=== PATIENT | male | born 1960 | race African-American/Black ===

== ENCOUNTER 2018-09-07 12:14 | Inpatient (IN) | payer SELFPAY ==
[2018-09-07 13:13] LABS: BUN/Creatinine Ratio 25; Blood Urea Nitrogen 10 mg/dL (9-20); Hemolysis Index 6
[2018-09-07 13:22] LABS: Basophils # (Auto) 0.1 K/mm3 (0.0-0.1); Basophils % (Auto) 0.4 % (0.0-1.8); Eosinophils % (Auto) 0.1 % (0.0-4.3); Hematocrit 33.6 % (35.5-45.6); Hemoglobin 10.9 gm/dl (11.8-15.2); Lymphocytes # (Auto) 1.3 K/mm3 (1.2-5.4); Lymphocytes % (Auto) 8.6 % (13.4-35.0); Mean Corpuscular HGB Conc 32 % (32-34); Mean Corpuscular Volume 82 fl (84-94); Monocytes # (Auto) 0.9 K/mm3 (0.0-0.8); Monocytes % (Auto) 5.6 % (0.0-7.3); Platelet Count 618 K/mm3 (140-440); Red Blood Count 4.11 M/mm3 (3.65-5.03); Red Cell Distribution Width 14.7 % (13.2-15.2)
[2018-09-07] MEDS ORDERED: DECADRON IV ONE (13:42)
[2018-09-07] MEDS ORDERED: NACL 0.9% 1000 ML 1,000 ML IV ONE (13:43)
[2018-09-07 13:46] LABS: INR 1.24 (0.87-1.13)
[2018-09-07 13:47] LABS: Partial Thromboplastin Time 46.8 Sec. (24.2-36.6)
--- NOTE | 2018-09-07 13:57 | XRay Report ---
FINAL REPORT EXAM: XR CHEST ROUTINE 2V HISTORY: Shortness of breath TECHNIQUE: Frontal chest x-ray. PRIORS: None currently available. FINDINGS: Cardiac silhouette is within normal limits. Right paratracheal opacity with ill-defined margins causes displaces the mediastinum to the left and narrows trachea. Findings are concerning for mass. Prominent right hilar region suggests enlarged lym ph nodes. Streaky opacities around the right paratracheal opacity may represent lymphangitic spread o r pulmonary vascular congestion. Right apical pleural thickening identified. No pneumothorax. No effu tian. Left lung is clear. There are no suspicious osseous lesions. IMPRESSION: Suspect right paratracheal mass and mediastinal adenopathy. Mass causes left mediastinal shift and na rrowing the trachea. Further evaluation with a CT thorax with contrast is recommended if clinically i ndicated. There may be right perihilar pulmonary vascular congestion and or lymphangitic spread of tumor.
[2018-09-07 14:33] LABS: Creatine Kinase MB 2.6 ng/mL (0.0-4.0)
--- NOTE | 2018-09-07 14:36 | Emergency Department Report ---
HPI - General Chief Complaint: Dyspnea/Respdistress Time Seen by Provider: 09/07/18 12:50 - HPI HPI: Room 2 The patient is a 58-year-old male presents with a chief complaint of shortness of breath. The patient complains of cough productive of white sputum for the past 2 months. Patient states for the past 2 days he has had shortness of breath and noisy respirations. Patient also complains of upper back pain for the past 2 months. Patient denies hemoptysis. The patient states he has had unexplained weight loss over the past 2 months. Location: Lungs Duration: [See above] Quality: Shortness of breath Severity: [See above] Modifying factors: [see above] Context: [see above] Mode of transportation: [not driving] ED Past Medical Hx - Past Medical History Previous Medical History?: No - Surgical History Past Surgical History?: No - Family History Family history: no significant - Social History Smoking Status: Current Every Day Smoker Substance Use Type: None ED Review of Systems ROS: Stated complaint: SOB Other details as noted in HPI Constitutional: denies: fever Eyes: denies: eye pain ENT: denies: throat pain Respiratory: cough, shortness of breath Cardiovascular: denies: chest pain Endocrine: no symptoms reported Gastrointestinal: denies: abdominal pain Genitourinary: denies: dysuria Musculoskeletal: back pain Neurological: denies: headache Physical Exam - Physical Exam Vital Signs: Vital Signs 09/07/18 09/07/18 09/07/18 12:36 13:52 14:23 Temperature 97.5 F L Pulse Rate [ 108 H 107 H Anterior Bilateral Throughout] Respiratory 24 22 Rate [Anterior Bilateral Throughout] Physical Exam: GENERAL: The patient is well-developed well-nourished male lying on stretcher not appearing to be in acute distress. [] HEENT: Normocephalic. Atraumatic. Extraocular motions are intact. Patient has moist mucous membranes. NECK: Supple. Trachea midline CHEST/LUNGS: Diffuse rhonchi, occasional cough. HEART/CARDIOVASCULAR: Regular. There is tachycardia. There is no gallop rub or murmur. ABDOMEN: Abdomen is soft, nontender. Patient has normal bowel sounds. There is no abdominal distention. SKIN: There is no rash. There is no edema. There is no diaphoresis. NEURO: The patient is awake, alert, and oriented. The patient is cooperative. The patient has normal speech MUSCULOSKELETAL: There is no evidence of acute injury. ED Course Vital Signs 09/07/18 09/07/18 09/07/18 12:36 13:52 14:23 Temperature 97.5 F L Pulse Rate [ 108 H 107 H Anterior Bilateral Throughout] Respiratory 24 22 Rate [Anterior Bilateral Throughout] - Consultations Consultation #1: 09/07/18 17:[address] Marquez/pulmonology ED Medical Decision Making - Lab Data Result diagrams: 09/07/18 Unknown 09/07/18 Unknown Laboratory Tests 09/07/18 09/07/18 09/07/18 13:25 Unknown Unknown WBC 15.5 H RBC 4.11 Hgb 10.9 L Hct 33.6 L MCV 82 L MCH 26 L MCHC 32 RDW 14.7 Plt Count 618 H Lymph % (Auto) 8.6 L [place] % (Auto) 5.6 Eos % (Auto) 0.1 Baso % (Auto) 0.4 Lymph # 1.3 [place] # 0.9 H Eos # 0.0 Baso # 0.1 Seg Neutrophils % 85.3 H Seg Neutrophils # 13.2 H PT 16.0 H INR 1.24 H APTT 46.8 H Sodium 134 L Potassium 4.4 Chloride 94.7 L Carbon Dioxide 24 Anion Gap 20 BUN 10 Creatinine 0.4 L Estimated GFR > 60 BUN/Creatinine Ratio 25 Glucose 135 H Calcium 9.0 Total Creatine Kinase CK-MB (CK-2) CK-MB (CK-2) Rel Index Troponin T NT-Pro-B Natriuret Pep Triglycerides Cholesterol LDL Cholesterol Direct HDL Cholesterol Cholesterol/HDL Ratio 09/07/18 Unknown WBC RBC Hgb Hct MCV MCH MCHC RDW Plt Count Lymph % (Auto) [place] % (Auto) Eos % (Auto) Baso % (Auto) Lymph # [place] # Eos # Baso # Seg Neutrophils % Seg Neutrophils # PT INR APTT Sodium Potassium Chloride Carbon Dioxide Anion Gap BUN Creatinine Estimated GFR BUN/Creatinine Ratio Glucose Calcium Total Creatine Kinase 45 L CK-MB (CK-2) 2.6 CK-MB (CK-2) Rel Index 5.7 H Troponin T 0.056 H NT-Pro-B Natriuret Pep 651.9 Triglycerides 101 Cholesterol 133 LDL Cholesterol Direct 92 HDL Cholesterol 27 L Cholesterol/HDL Ratio 4.92 - EKG Data -: EKG Interpreted by Me EKG shows normal: sinus rhythm Rate: tachycardia (105 bpm) - EKG Data When compared to previous EKG there are: previous EKG unavailable Interpretation: nonspecific ST-T wave miryam (T-wave inversions in leads V4, V5, V6) - Radiology Data Radiology results: report reviewed (chest x-ray, CT chest), image reviewed (chest x-ray, CT chest) interpreted by me: Chest x-ray-right upper lobe mass pushing trachea to the left. No pneumothorax [address] [address] XRay Report Signed Patient: EVELIO SWANN MR#: [id number] : 1960 Acct:[id number] Age/Sex: 58 / M ADM Date: 09/07/18 Loc: ED Attending Dr: Ordering Physician: KATTY NUÑEZ MD Date of Service: 09/07/18 Procedure(s): XR chest routine 2V Accession Number(s): [id number] cc: KATTY NUÑEZ MD Fluoro Time In Minutes: FINAL REPORT EXAM: XR CHEST ROUTINE 2V HISTORY: Shortness of breath TECHNIQUE: Frontal chest x-ray. PRIORS: None currently available. FINDINGS: Cardiac silhouette is within normal limits. Right paratracheal opacity with ill- defined margins causes displaces the mediastinum to the left and narrows trachea. Findings are concerning for mass. Prominent right hilar region suggests enlarged lymph nodes. Streaky opacities around the right paratracheal opacity may represent lymphangitic spread or pulmonary vascular congestion. Right apical pleural thickening identified. No pneumothorax. No effusion. Left lung is clear. There are no suspicious osseous lesions. IMPRESSION: Suspect right paratracheal mass and mediastinal adenopathy. Mass causes left mediastinal shift and narrowing the trachea. Further evaluation with a CT thorax with contrast is recommended if clinically indicated. There may be right perihilar pulmonary vascular congestion and or lymphangitic spread of tumor. Transcribed By: TYM Dictated By: MIMI BOOTHE MD Electronically Authenticated By: MIMI BOOTHE MD Signed Date/Time: 09/07/18 1357 DD/ 1400 TD/TT: 09/07/18 [address] [address] Cat Scan Report Signed Patient: EVELIO SWANN MR#: [id number] : 1960 Acct:[id number] Age/Sex: 58 / M ADM Date: 09/07/18 Loc: ED Attending Dr: Ordering Physician: KATTY NUÑEZ MD Date of Service: 09/07/18 Procedure(s): CT angio chest Accession Number(s): [id number] cc: KATTY NUÑEZ MD FINAL REPORT EXAM: CT ANGIO CHEST HISTORY: right upper lobe mass, hypoxia TECHNIQUE: CTA of chest with IV contrast. Coronal and sagittal and MIP reconstructed images provided. PRIORS: None currently available. FINDINGS: Right upper lobe paratracheal mass demonstrates surrounding stranding suggesting lymphangitic spread. Spiculated pulmonary nodule in the right upper lobe on series 2:66 measures 5.3 mm suggesting metastatic disease. Mild emphysema. Interseptal thickening with slight nodularity in both lung bases may represent lymphangitic spread. Trace bilateral pleural effusions. Bibasilar subsegmental atelectasis noted. SVC severely narrow measuring 4.3 mm in diameter and normally measures 12.5 mm in diameter. Mass effect identified. Collateralized flow to the heart noted. Main pulmonary artery is unremarkable. No pulmonary embolus. No aortic aneurysm or dissection. [id number] aortic atherosclerotic disease. Major branch arteries are patent. Mild cardiomegaly. No pericardial effusion. Right paratracheal mass measures 8 x 9 x 7 cm. On series 2:48-51 there appears to be extension and invasion into the distal right trachea and narrowing the airway down to 4 mm which normally measures 11 mm. There is encasement and mass-effect on the left upper lobe arterial arteries but no direct invasion. There may be some mild narrowing of the arteries. Encasement and mild narrowing of the right bronchi identified. Prominent right hilar soft tissues and right mediastinal soft tissues suggests associated adenopathy. Left hilar regions unremarkable. Images of the esophagus are unremarkable. No suspicious osseous lesions on this limited examination of the skeleton. Metastatic disease better evaluated with bone scan. IMPRESSION: Right paratracheal mass with invasion of the distal t rachea. Significant airway narrowing identified. Interseptal thickening around the mass and in both lower lobe suggests lymphangitic spread. Separate nearby spiculated nodule in the right upper lobe suggest metastatic disease. Pathological adenopathy in the mediastinum and right hilar region. Significant narrowing of the SVC with collateralized return to the heart. Cardiomegaly. September 07, 2018 at 1329 PST: I discussed the findings over phone with Dr. Nuñez. Transcribed By: TYM Dictated By: MIMI BOOTHE MD Electronically Authenticated By: MIMI BOOTHE MD Signed Date/Time: 09/07/181633 DD/ 36 TD/TT: 09/07/181636 - Differential Diagnosis lungs CTA, tuberculosis, Critical care attestation.: If time is entered above; I have spent that time in minutes in the direct care of this critically ill patient, excluding procedure time. ED Disposition Clinical Impression: Lung mass, Shortness of breath Disposition: 09 OP ADMIT IP TO THIS HOSP Is pt being admited?: Yes Does the pt Need Aspirin: Yes Condition: Fair Referrals: PRIMARY CARE, [Primary Care Provider] - 3-5 Days Time of Disposition: 17:04 (hospitalist notified (Dr Pratt))
[2018-09-07 14:44] LABS: Chol/HDL Ratio 4.92 %
--- NOTE | 2018-09-07 16:34 | Cat Scan Report ---
FINAL REPORT EXAM: CT ANGIO CHEST HISTORY: right upper lobe mass, hypoxia TECHNIQUE: CTA of chest with IV contrast. Coronal and sagittal and MIP reconstructed images provided . PRIORS: None currently available. FINDINGS: Right upper lobe paratracheal mass demonstrates surrounding stranding suggesting lymphangitic spread. Spiculated pulmonary nodule in the right upper lobe on series 2:66 measures 5.3 mm suggesting metast atic disease. Mild emphysema. Interseptal thickening with slight nodularity in both lung bases may re present lymphangitic spread. Trace bilateral pleural effusions. Bibasilar subsegmental atelectasis no lucy. SVC severely narrow measuring 4.3 mm in diameter and normally measures 12.5 mm in diameter. Mass effe ct identified. Collateralized flow to the heart noted. Main pulmonary artery is unremarkable. No pulmonary embolus. No aortic aneurysm or dissection. [id number] aortic atherosclerotic disease. Major branch arter ies are patent. Mild cardiomegaly. No pericardial effusion. Right paratracheal mass measures 8 x 9 x 7 cm. On series 2:48-51 there appears to be extension and in vasion into the distal right trachea and narrowing the airway down to 4 mm which normally measures 11 mm. There is encasement and mass-effect on the left upper lobe arterial arteries but no direct invas ion. There may be some mild narrowing of the arteries. Encasement and mild narrowing of the right bro nchi identified. Prominent right hilar soft tissues and right mediastinal soft tissues suggests associated adenopathy. Left hilar regions unremarkable. Images of the esophagus are unremarkable. No suspicious osseous lesions on this limited examination of the skeleton. Metastatic disease better evaluated with bone scan. IMPRESSION: Right paratracheal mass with invasion of the distal trachea. Significant airway narrowing identified. Interseptal thickening around the mass and in both lower lobe suggests lymphangitic spread. Separate nearby spiculated nodule in the right upper lobe suggest metastatic disease. Pathological adenopathy in the mediastinum and right hilar region. Significant narrowing of the SVC with collateralized return to the heart. Cardiomegaly. September 07, 2018 at 1329 PST: I discussed the findings over phone with Dr. Boss.
[2018-09-07] MEDS ORDERED: ASPIRIN PO ONE (17:06)
[2018-09-07] MEDS ORDERED: ZOFRAN IV PRN (19:08)
[2018-09-07] MEDS ORDERED: TYLENOL PO PRN (19:08)
[2018-09-07] MEDS ORDERED: SODIUM CHLORIDE FLUSH SYRINGE 10 ML IV PRN (19:08)
--- NOTE | 2018-09-07 19:08 | History and Physical Report ---
History of Present Illness Date of examination: 09/07/18 Date of admission: 09/07/18 Chief complaint: Increaing SOB for 2 days with wheezing History of present illness: 58-year-old [place] male with no sig PMH presents with chief complaint of shortness of breath. The patient complains of cough productive of white sputum for the past 2 months. Patient states for the past 2 days he has had shortness of breath and Wheezing. Patient also complains of upper back pain for the past 2 months. Has been loosing weight for last 2 months.Used [employer] to communicate with son and DadPatient denies hemoptysis. Past Medical History Previous Medical History?: No Surgical History Past Surgical History?: No Family History Family history: no significant Social History Smoking Status: Current Every Day Smoker Substance Use Type: None Review of systems ROS: Stated complaint: SOB Other details as noted in HPI Constitutional: denies: fever Eyes: denies: eye pain ENT: denies: throat pain Respiratory: cough, shortness of breath Cardiovascular: denies: chest pain Endocrine: no symptoms reported Gastrointestinal: denies: abdominal pain Genitourinary: denies: dysuria Musculoskeletal: back pain Neurological: denies: headache Medications and Allergies Allergies Allergy/AdvReac Type Severity Reaction Status Date / Time No Known Allergies Allergy Unverified 09/07/18 12:25 Exam - Constitutional Vitals: Temp Pulse Resp BP Pulse Ox 97.3 F L 104 H 20 142/94 94 09/07/18 16:37 09/07/18 18:46 09/07/18 18:46 09/07/18 18:46 09/07/18 18:46 General appearance: Present: severe distress, well-nourished - EENT Eyes: Present: PERRL ENT: hearing intact, clear oral mucosa - Neck Neck: Present: supple, normal ROM - Respiratory Respiratory effort: normal Respiratory: bilateral: CTA, rhonchi, wheezing - Cardiovascular Heart rate: 78 Rhythm: regular Heart Sounds: Present: S1 & S2. Absent: rub, click - Extremities Extremities: no ischemia, pulses intact, pulses symmetrical, No edema Peripheral Pulses: within normal limits - Abdominal General gastrointestinal: Present: soft, non-tender, non-distended, normal bowel sounds Male genitourinary: Present: normal - Rectal Rectal Exam: deferred - Integumentary Integumentary: Present: clear, warm, dry - Musculoskeletal Musculoskeletal: gait normal, strength equal bilaterally - Psychiatric Psychiatric: appropriate mood/affect, intact judgment & insight - Neurologic Neurologic: CNII-XII intact, moves all extremities - Allied Health Allied health notes reviewed: nursing, case management Results - Labs CBC & Chem 7: 09/07/18 Unknown 09/07/18 Unknown Labs: Laboratory Last Values WBC 15.5 K/mm3 (4.5-11.0) H 09/07/18 Unknown RBC 4.11 M/mm3 (3.65-5.03) 09/07/18 Unknown Hgb 10.9 gm/dl (11.8-15.2) L 09/07/18 Unknown Hct 33.6 % (35.5-45.6) L 09/07/18 Unknown MCV 82 fl (84-94) L 09/07/18 Unknown MCH 26 pg (28-32) L 09/07/18 Unknown MCHC 32 % (32-34) 09/07/18 Unknown RDW 14.7 % (13.2-15.2) 09/07/18 Unknown Plt Count 618 K/mm3 (140-440) H 09/07/18 Unknown Lymph % (Auto) 8.6 % (13.4-35.0) L 09/07/18 Unknown [place] % (Auto) 5.6 % (0.0-7.3) 09/07/18 Unknown Eos % (Auto) 0.1 % (0.0-4.3) 09/07/18 Unknown Baso % (Auto) 0.4 % (0.0-1.8) 09/07/18 Unknown Lymph # 1.3 K/mm3 (1.2-5.4) 09/07/18 Unknown [place] # 0.9 K/mm3 (0.0-0.8) H 09/07/18 Unknown Eos # 0.0 K/mm3 (0.0-0.4) 09/07/18 Unknown Baso # 0.1 K/mm3 (0.0-0.1) 09/07/18 Unknown Seg Neutrophils % 85.3 % (40.0-70.0) H 09/07/18 Unknown Seg Neutrophils # 13.2 K/mm3 (1.8-7.7) H 09/07/18 Unknown PT 16.0 Sec. (12.2-14.9) H 09/07/18 13:25 INR 1.24 (0.87-1.13) H 09/07/18 13:25 APTT 46.8 Sec. (24.2-36.6) H 09/07/18 13:25 Sodium 134 mmol/L (137-145) L 09/07/18 Unknown Potassium 4.4 mmol/L (3.6-5.0) 09/07/18 Unknown Chloride 94.7 mmol/L (98-107) L 09/07/18 Unknown Carbon Dioxide 24 mmol/L (22-30) 09/07/18 Unknown Anion Gap 20 mmol/L 09/07/18 Unknown BUN 10 mg/dL (9-20) 09/07/18 Unknown Creatinine 0.4 mg/dL (0.8-1.5) L 09/07/18 Unknown Estimated GFR > 60 ml/min 09/07/18 Unknown BUN/Creatinine Ratio 25 % 09/07/18 Unknown Glucose 135 mg/dL (75-100) H 09/07/18 Unknown Calcium 9.0 mg/dL (8.4-10.2) 09/07/18 Unknown Total Creatine Kinase 45 units/L (55-170) L 09/07/18 Unknown CK-MB (CK-2) 2.6 ng/mL (0.0-4.0) 09/07/18 Unknown CK-MB (CK-2) Rel Index 5.7 (0-4) H 09/07/18 Unknown Troponin T 0.056 ng/mL (0.00-0.029) H 09/07/18 Unknown NT-Pro-B Natriuret Pep 651.9 pg/mL (0-900) 09/07/18 Unknown Triglycerides 101 mg/dL (2-149) 09/07/18 Unknown Cholesterol 133 mg/dL (50-199) 09/07/18 Unknown LDL Cholesterol Direct 92 mg/dL (50-130) 09/07/18 Unknown HDL Cholesterol 27 mg/dL (40-59) L 09/07/18 Unknown Cholesterol/HDL Ratio 4.92 % 09/07/18 Unknown - Imaging and Cardiology EKG: report reviewed Imaging and Cardiology: CT Chest IMPRESSION: Right paratracheal mass with invasion of the distal trachea. Significant airway narrowing identified. Interseptal thickening around the mass and in both lower lobe suggests lymphangitic spread. Separate nearby spiculated nodule in the right upper lobe suggest metastatic disease. Pathological adenopathy in the mediastinum and right hilar region. Significant narrowing of the SVC with collateralized return to the heart. Cardiomegaly. September 07, 2018 at 1329 PST: I discussed the findings over phone with Dr. Boss. CXR IMPRESSION: Suspect right paratracheal mass and mediastinal adenopathy. Mass causes left mediastinal shift and narrowing the trachea. Further evaluation with a CT thorax with contrast is recommended if clinically indicated. There may be right perihilar pulmonary vascular congestion and or lymphangitic spread of tumor. Assessment and Plan Advance Directives: Yes (Full code) VTE prophylaxis?: Chemical Plan of care discussed with patient/family: Yes - Patient Problems (1) Acute respiratory failure Current Visit: Yes Status: Acute Qualifiers: Respiratory failure complication: hypoxia Qualified Code(s): J96.01 - Acute respiratory failure with hypoxia Plan to address problem: On Bipap Intubate if necessary IV Solumedrol IV abx and Duonebs (2) Lung cancer Current Visit: Yes Status: Acute Qualifiers: Laterality: right Plan to address problem: Diagnosed today May need Biopsy Will defer to Oncology (3) COPD exacerbation Current Visit: Yes Status: Acute Plan to address problem: IV saolumedrol IV abx and Duonebs (4) DVT prophylaxis Current Visit: Yes Status: Acute Plan to address problem: On Lovenox and GI prophylaxis
[2018-09-07] MEDS ORDERED: PERCOCET 5/325 PO PRN (19:09)
[2018-09-07] MEDS ORDERED: DILAUDID IV PRN (19:09)
[2018-09-07] MEDS ORDERED: PROVENTIL IH PRN (19:12)
[2018-09-07] MEDS ORDERED: D5NS 1,000 ML IV SCH (20:00)
[2018-09-07] MEDS: LEVAQUIN 750MG/150ML 750 MG/150 ML BAG IV SCH (20:45)
[2018-09-07] MEDS ORDERED: LEVAQUIN 750MG/150ML 750 MG/150 ML BAG IV ONE (20:47)
[2018-09-07] MEDS ORDERED: APRESOLINE IV ONE (20:50)
[2018-09-07] MEDS: SOLU-Medrol IV SCH (21:32)
[2018-09-07] MEDS: SODIUM CHLORIDE FLUSH SYRINGE 10 ML IV SCH (21:32)
[2018-09-07] MEDS: DUONEB *Not for PRN Use IH SCH (22:01)
[2018-09-08] MEDS: SOLU-Medrol IV SCH ×3 (05:52→22:16)
[2018-09-08 06:28] LABS: Alanine Aminotransferase 24 units/L (7-56); Albumin 2.7 g/dL (3.9-5); BUN/Creatinine Ratio 30; Blood Urea Nitrogen 12 mg/dL (9-20); Calcium 8.7 mg/dL (8.4-10.2); Hemolysis Index 3
--- NOTE | 2018-09-08 08:47 | Progress Note ---
Assessment and Plan Assessment and plan: Acute respiratory failure. supplemental Oxygen Right lung mass with mediastinal shift and narrowing of trachea. Likely lung cancer. Pulm and Oncology consulted SVC syndrome COPD exacerbation Hyponatremia. Full code status Hospitalist Physical - Physical exam Narrative exam: GEN: Not in acute distress,lying in bed HEENT: atraumatic, Neck: supple, No JVD Lungs: Decreased breath sounds bilateral, no wheeze Heart:S1 and S2 regular, no murmurs, rubs or gallop, Abd:soft, non tender, non distended, normal bowel sounds Ext: No edema, no clubbing or cyanosis Neuro: Awake,alert, oriented x 3, No focal signs Psych:Normal mood - Constitutional Vitals: Temp Pulse Resp BP Pulse Ox 97.3 F L 89 20 105/78 95 09/07/18 16:37 09/08/18 06:08 09/08/18 06:08 09/08/18 06:08 09/08/18 06:08 Results - Labs CBC & Chem 7: 09/08/18 05:15 09/08/18 05:30 Labs: Laboratory Last Values WBC 15.5 K/mm3 (4.5-11.0) H 09/07/18 Unknown RBC 4.11 M/mm3 (3.65-5.03) 09/07/18 Unknown Hgb 10.9 gm/dl (11.8-15.2) L 09/07/18 Unknown Hct 33.6 % (35.5-45.6) L 09/07/18 Unknown MCV 82 fl (84-94) L 09/07/18 Unknown MCH 26 pg (28-32) L 09/07/18 Unknown MCHC 32 % (32-34) 09/07/18 Unknown RDW 14.7 % (13.2-15.2) 09/07/18 Unknown Plt Count 618 K/mm3 (140-440) H 09/07/18 Unknown Lymph % (Auto) 8.6 % (13.4-35.0) L 09/07/18 Unknown [place] % (Auto) 5.6 % (0.0-7.3) 09/07/18 Unknown Eos % (Auto) 0.1 % (0.0-4.3) 09/07/18 Unknown Baso % (Auto) 0.4 % (0.0-1.8) 09/07/18 Unknown Lymph # 1.3 K/mm3 (1.2-5.4) 09/07/18 Unknown [place] # 0.9 K/mm3 (0.0-0.8) H 09/07/18 Unknown Eos # 0.0 K/mm3 (0.0-0.4) 09/07/18 Unknown Baso # 0.1 K/mm3 (0.0-0.1) 09/07/18 Unknown Seg Neutrophils % 85.3 % (40.0-70.0) H 09/07/18 Unknown Seg Neutrophils # 13.2 K/mm3 (1.8-7.7) H 09/07/18 Unknown PT 16.0 Sec. (12.2-14.9) H 09/07/18 13:25 INR 1.24 (0.87-1.13) H 09/07/18 13:25 APTT 46.8 Sec. (24.2-36.6) H 09/07/18 13:25 Sodium 141 mmol/L (137-145) D 09/08/18 05:30 Potassium 5.1 mmol/L (3.6-5.0) H 09/08/18 05:30 Chloride 101.0 mmol/L (98-107) 09/08/18 05:30 Carbon Dioxide 28 mmol/L (22-30) 09/08/18 05:30 Anion Gap 17 mmol/L 09/08/18 05:30 BUN 12 mg/dL (9-20) 09/08/18 05:30 Creatinine 0.4 mg/dL (0.8-1.5) L 09/08/18 05:30 Estimated GFR > 60 ml/min 09/08/18 05:30 BUN/Creatinine Ratio 30 % 09/08/18 05:30 Glucose 197 mg/dL (75-100) H 09/08/18 05:30 Hemoglobin A1c 6.2 % (4-6) H 09/07/18 19:18 Calcium 8.7 mg/dL (8.4-10.2) 09/08/18 05:30 Total Bilirubin 0.20 mg/dL (0.1-1.2) 09/08/18 05:30 AST 26 units/L (5-40) 09/08/18 05:30 ALT 24 units/L (7-56) 09/08/18 05:30 Alkaline Phosphatase 171 units/L (35-129) H 09/08/18 05:30 Total Creatine Kinase 45 units/L (55-170) L 09/07/18 Unknown CK-MB (CK-2) 2.6 ng/mL (0.0-4.0) 09/07/18 Unknown CK-MB (CK-2) Rel Index 5.7 (0-4) H 09/07/18 Unknown Troponin T 0.056 ng/mL (0.00-0.029) H 09/07/18 Unknown NT-Pro-B Natriuret Pep 651.9 pg/mL (0-900) 09/07/18 Unknown Total Protein 7.6 g/dL (6.3-8.2) 09/08/18 05:30 Albumin 2.7 g/dL (3.9-5) L 09/08/18 05:30 Albumin/Globulin Ratio 0.6 % 09/08/18 05:30 Triglycerides 101 mg/dL (2-149) 09/07/18 Unknown Cholesterol 133 mg/dL (50-199) 09/07/18 Unknown LDL Cholesterol Direct 92 mg/dL (50-130) 09/07/18 Unknown HDL Cholesterol 27 mg/dL (40-59) L 09/07/18 Unknown Cholesterol/HDL Ratio 4.92 % 09/07/18 Unknown
[2018-09-08 09:15] LABS: Basophils % (Auto) 0.2 % (0.0-1.8); Hematocrit 34.1 % (35.5-45.6); Hemoglobin 10.9 gm/dl (11.8-15.2); Lymphocytes % (Auto) 10.5 % (13.4-35.0); Mean Corpuscular HGB Conc 32 % (32-34); Mean Corpuscular Volume 82 fl (84-94); Monocytes # (Auto) 0.1 K/mm3 (0.0-0.8); Monocytes % (Auto) 1.4 % (0.0-7.3); Platelet Count 652 K/mm3 (140-440); Red Blood Count 4.17 M/mm3 (3.65-5.03)
[2018-09-08] MEDS: DUONEB *Not for PRN Use IH SCH ×4 (09:58→19:46)
[2018-09-08] MEDS ORDERED: LOVENOX SUB-Q SCH (10:00)
[2018-09-08] MEDS: LEVAQUIN 750MG/150ML 750 MG/150 ML BAG IV SCH (10:02)
[2018-09-08] MEDS: SODIUM CHLORIDE FLUSH SYRINGE 10 ML IV SCH ×2 (10:11→22:17)
[2018-09-08] MEDS: LOVENOX SUB-Q SCH (10:11)
--- NOTE | 2018-09-08 10:48 | Event Note ---
Date: 09/08/18 Called by ED yesterday about this patient. I reviewed the imaging this am myself. This is stage IV disease given the size, location and vascular involvement (it actually looks like it invades/eroded through the trachea). It is amenable to biopsy however, he has significant narrowing of his trachea and COPD seen on CT. He may go into respiratory distress and even failure if bronch is attempted with biopsy. I would suggest consult with heme/onc to see if they can arrange urgent radiation therapy to help shrink tumor burden and make it sa esequiel for biopsy. The other option is to ask surgery (thoracic which does not round here anymore) to obtain mead and patient would be at least intubated for that procedure. The overall prognosis is poor. Would give steroid therapy to see if this makes the patient feel somewhat better. Call if questions. Will follow peripherally at this time.
[2018-09-08] MEDS ORDERED: AFLURIA QUAD 2018-2019 SYRINGE IM ONE (12:00)
[2018-09-09] MEDS: SOLU-Medrol IV SCH ×3 (05:46→21:34)
[2018-09-09] MEDS: DUONEB *Not for PRN Use IH SCH ×4 (08:38→20:27)
[2018-09-09] MEDS: LEVAQUIN 750MG/150ML 750 MG/150 ML BAG IV SCH (09:49)
[2018-09-09] MEDS: LOVENOX SUB-Q SCH (09:50)
[2018-09-09] MEDS ORDERED: KIONEX PO ONE (13:36)
--- NOTE | 2018-09-09 14:27 | Consultation ---
History of Present Illness Consult date: 09/09/18 Requesting physician: MITA ALICEA Reason for consult: lung mass History of present illness: 58 yo presents w/ 4 days or so of increased SOB, cough with some dark blood. Has had weight loss and some facial swelling as well. No fevers, chills, chest pain. Active Medications Acetaminophen (Tylenol) 650 mg PO Q4H PRN PRN Reason: Pain MILD(1-3)/Fever >100.5/[place] Albuterol (Proventil) 2.5 mg IH Q4HRT PRN PRN Reason: Shortness Of Breath Albuterol/Ipratropium (Duoneb *Not For Prn Use*) 1 ampul IH QIDRT [facility] Last Admin: 09/09/18 11:51 Dose: 1 ampul Documented by: Enoxaparin Sodium (Lovenox) 40 mg SUB-Q QDAY@1000 RENETTA Last Admin: 09/09/18 09:50 Dose: 40 mg Documented by: Hydromorphone HCl (Dilaudid) 0.5 mg IV Q3H PRN PRN Reason: Pain , Severe (7-10) Levofloxacin/Dextrose (Levaquin 750mg/150ml) 750 mg in 150 mls @ 100 mls/hr IV Q24HR [facility]; Protocol Last Admin: 09/09/18 09:49 Dose: 100 mls/hr Documented by: Methylprednisolone Sodium Succinate (Solu-Medrol) 125 mg IV Q8HR [facility] Last Admin: 09/09/18 05:46 Dose: 125 mg Documented by: Ondansetron HCl (Zofran) 4 mg IV Q8H PRN PRN Reason: Nausea And Vomiting Oxycodone/Acetaminophen (Percocet 5/325) 1 tab PO Q6H PRN PRN Reason: Pain, Moderate (4-6) Last Admin: 09/08/18 23:57 Dose: 1 tab Documented by: Sodium Chloride (Sodium Chloride Flush Syringe 10 Ml) 10 ml IV BID [facility] Last Admin: 09/08/18 22:17 Dose: 10 ml Documented by: Sodium Chloride (Sodium Chloride Flush Syringe 10 Ml) 10 ml IV PRN PRN PRN Reason: LINE FLUSH Past History Past Medical History: No medical history Past Surgical History: No surgical history Social history: smoking, full code. denies: alcohol abuse, prescription drug abuse, IV drug use Family history: other (No pulm issues reported) Medications and Allergies Allergies Allergy/AdvReac Type Severity Reaction Status Date / Time No Known Allergies Allergy Unverified 09/07/18 12:25 Active Meds: Active Medications Acetaminophen (Tylenol) 650 mg PO Q4H PRN PRN Reason: Pain MILD(1-3)/Fever >100.5/[place] Albuterol (Proventil) 2.5 mg IH Q4HRT PRN PRN Reason: Shortness Of Breath Albuterol/Ipratropium (Duoneb *Not For Prn Use*) 1 ampul IH QIDRT [facility] Last Admin: 09/09/18 11:51 Dose: 1 ampul Documented by: Enoxaparin Sodium (Lovenox) 40 mg SUB-Q QDAY@1000 RENETTA Last Admin: 09/09/18 09:50 Dose: 40 mg Documented by: Hydromorphone HCl (Dilaudid) 0.5 mg IV Q3H PRN PRN Reason: Pain , Severe (7-10) Levofloxacin/Dextrose (Levaquin 750mg/150ml) 750 mg in 150 mls @ 100 mls/hr IV Q24HR [facility]; Protocol Last Admin: 09/09/18 09:49 Dose: 100 mls/hr Documented by: Methylprednisolone Sodium Succinate (Solu-Medrol) 125 mg IV Q8HR [facility] Last Admin: 09/09/18 05:46 Dose: 125 mg Documented by: Ondansetron HCl (Zofran) 4 mg IV Q8H PRN PRN Reason: Nausea And Vomiting Oxycodone/Acetaminophen (Percocet 5/325) 1 tab PO Q6H PRN PRN Reason: Pain, Moderate (4-6) Last Admin: 09/08/18 23:57 Dose: 1 tab Documented by: Sodium Chloride (Sodium Chloride Flush Syringe 10 Ml) 10 ml IV BID [facility] Last Admin: 09/08/18 22:17 Dose: 10 ml Documented by: Sodium Chloride (Sodium Chloride Flush Syringe 10 Ml) 10 ml IV PRN PRN PRN Reason: LINE FLUSH Review of Systems All systems: negative Physical Examination Vital signs: Vital Signs Pulse Ox 93 09/07/18 12:29 Vital Signs - 24 hr 09/08/18 09/08/18 09/08/18 16:28 16:38 18:08 Temperature 97.7 F Pulse Rate 109 H Pulse Rate [ 97 H 100 H Anterior Bilateral Throughout] Respiratory 24 Rate Respiratory 20 20 Rate [Anterior Bilateral Throughout] Blood Pressure 151/94 O2 Sat by Pulse 98 Oximetry 09/08/18 09/08/18 09/08/18 19:46 19:47 19:56 Temperature Pulse Rate Pulse Rate [ 108 H 111 H Anterior Bilateral Throughout] Respiratory Rate Respiratory 17 17 Rate [Anterior Bilateral Throughout] Blood Pressure O2 Sat by Pulse 97 Oximetry 09/08/18 09/08/18 09/08/18 22:00 23:56 23:57 Temperature 97.6 F Pulse Rate 97 H Pulse Rate [ Anterior Bilateral Throughout] Respiratory 20 18 20 Rate Respiratory Rate [Anterior Bilateral Throughout] Blood Pressure 139/95 O2 Sat by Pulse 97 Oximetry 09/09/18 09/09/18 09/09/18 00:57 06:18 08:35 Temperature 94.1 F L Pulse Rate 85 Pulse Rate [ 102 H Anterior Bilateral Throughout] Respiratory 18 16 Rate Respiratory 16 Rate [Anterior Bilateral Throughout] Blood Pressure 120/81 O2 Sat by Pulse 95 Oximetry 09/09/18 09/09/18 09/09/18 08:41 11:45 11:48 Temperature Pulse Rate Pulse Rate [ 92 H Anterior Bilateral Throughout] Respiratory Rate Respiratory 18 Rate [Anterior Bilateral Throughout] Blood Pressure O2 Sat by Pulse 97 97 Oximetry General appearance: no acute distress, alert Eyes: non-icteric ENT: oropharynx moist Neck: supple Effort: normal Ascultation: Bilateral: diminished breath sounds (mild, throughout) Cardiovascular: regular rate and rhythm (no mrg) Gastrointestinal: normoactive bowel sounds, soft, non-tender, non-distended Integumentary: normal Extremities: no cyanosis, no edema, pink and warm Musculoskeletal: no deformities normal mental status, non-focal exam, pupils equal and round, CN II-XII normal mood appropriate, affect normal Results - Laboratory Findings CBC and BMP: 09/08/18 05:15 09/08/18 05:30 PT/INR, D-dimer PT 16.0 Sec. (12.2-14.9) H 09/07/18 13:25 INR 1.24 (0.87-1.13) H 09/07/18 13:25 Abnormal lab findings: Abnormal Labs 0109/07/18 09/07/18 13:25 19:18 Unknown WBC Hgb Hct MCV MCH Plt Count Lymph % (Auto) Lymph # [place] # Seg Neutrophils % Seg Neutrophils # PT 16.0 H INR 1.24 H APTT 46.8 H Sodium 134 L Potassium Chloride 94.7 L Creatinine 0.4 L Glucose 135 H Hemoglobin A1c 6.2 H Alkaline Phosphatase Total Creatine Kinase CK-MB (CK-2) Rel Index Troponin T Albumin HDL Cholesterol 09/07/18 09/07/18 09/08/18 Unknown Unknown 05:15 WBC 15.5 H Hgb 10.9 L 10.9 L Hct 33.6 L 34.1 L MCV 82 L 82 L MCH 26 L 26 L Plt Count 618 H 652 H Lymph % (Auto) 8.6 L 10.5 L Lymph # 1.0 L [place] # 0.9 H Seg Neutrophils % 85.3 H 87.9 H Seg Neutrophils # 13.2 H 8.2 H PT INR APTT Sodium Potassium Chloride Creatinine Glucose Hemoglobin A1c Alkaline Phosphatase Total Creatine Kinase 45 L CK-MB (CK-2) Rel Index 5.7 H Troponin T 0.056 H Albumin HDL Cholesterol 27 L 09/08/18 05:30 WBC Hgb Hct MCV MCH Plt Count Lymph % (Auto) Lymph # [place] # Seg Neutrophils % Seg Neutrophils # PT INR APTT Sodium Potassium 5.1 H Chloride Creatinine 0.4 L Glucose 197 H Hemoglobin A1c Alkaline Phosphatase 171 H Total Creatine Kinase CK-MB (CK-2) Rel Index Troponin T Albumin 2.7 L HDL Cholesterol - Diagnostic Findings Chest x-ray: report reviewed, image reviewed CT scan - chest: report reviewed, image reviewed Assessment and Plan Imp: 1. Lung/mediastinal mass, likely malignant 2. 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 COPD exac. 4. Hemoptysis 2/2 #1 5. Chronic nicotine dependence, cigs 6. Acute respiratory failure, hypoxia Rec: 1. Bronchoscopy is not advised due to significant tracheal narrowing/compression; risk of losing airway completely is too high; I would also avoid general anesthesia for this same reason; unfortunately it seems the only options are attempting CT guided biopsy, palliative XRT to shrink tumor and improve tolerance of invasive work-up, or outpatient PET to eval. for other biopsy targets; he is willing to proceed with the TTNA (risks/benefits/alternatives explained, he understands) 2. Stop smoking 3. Agree w/ empiric steroids/ABX 4. History taken, and plan explained via translators (family, phone software) Plan of care reviewed with patient, he understands/agrees Thanks for the consult. Will follow with you.
--- NOTE | 2018-09-09 15:13 | Progress Note ---
Assessment and Plan Assessment and plan: Acute respiratory failure. supplemental Oxygen Right lung mass with mediastinal shift and narrowing of trachea. Likely lung cancer. Pulm and Oncology consulted CT lung biopsy ordered SVC syndrome COPD exacerbation Hyponatremia. Full code status History Interval history: Shortness of breath, cough,hemoptysis Hospitalist Physical - Physical exam Narrative exam: GEN: Not in acute distress,lying in bed HEENT: atraumatic, Neck: supple, No JVD Lungs: Decreased breath sounds bilateral, no wheeze Heart:S1 and S2 regular, no murmurs, rubs or gallop, Abd:soft, non tender, non distended, normal bowel sounds Ext: No edema, no clubbing or cyanosis Neuro: Awake,alert, oriented x 3, No focal signs Psych:Normal mood - Constitutional Vitals: Temp Pulse Resp BP Pulse Ox 94.1 F L 92 H 18 120/81 97 09/09/18 06:18 09/09/18 11:48 09/09/18 11:48 09/09/18 06:18 09/09/18 11:45 Results - Labs CBC & Chem 7: 09/08/18 05:15 09/08/18 05:30 Labs: Laboratory Last Values WBC 9.3 K/mm3 (4.5-11.0) 09/08/18 05:15 RBC 4.17 M/mm3 (3.65-5.03) 09/08/18 05:15 Hgb 10.9 gm/dl (11.8-15.2) L 09/08/18 05:15 Hct 34.1 % (35.5-45.6) L 09/08/18 05:15 MCV 82 fl (84-94) L 09/08/18 05:15 MCH 26 pg (28-32) L 09/08/18 05:15 MCHC 32 % (32-34) 09/08/18 05:15 RDW 15.0 % (13.2-15.2) 09/08/18 05:15 Plt Count 652 K/mm3 (140-440) H 09/08/18 05:15 Lymph % (Auto) 10.5 % (13.4-35.0) L 09/08/18 05:15 [place] % (Auto) 1.4 % (0.0-7.3) 09/08/18 05:15 Eos % (Auto) 0.0 % (0.0-4.3) 09/08/18 05:15 Baso % (Auto) 0.2 % (0.0-1.8) 09/08/18 05:15 Lymph # 1.0 K/mm3 (1.2-5.4) L 09/08/18 05:15 [place] # 0.1 K/mm3 (0.0-0.8) 09/08/18 05:15 Eos # 0.0 K/mm3 (0.0-0.4) 09/08/18 05:15 Baso # 0.0 K/mm3 (0.0-0.1) 09/08/18 05:15 Seg Neutrophils % 87.9 % (40.0-70.0) H 09/08/18 05:15 Seg Neutrophils # 8.2 K/mm3 (1.8-7.7) H 09/08/18 05:15 PT 16.0 Sec. (12.2-14.9) H 09/07/18 13:25 INR 1.24 (0.87-1.13) H 09/07/18 13:25 APTT 46.8 Sec. (24.2-36.6) H 09/07/18 13:25 Sodium 141 mmol/L (137-145) D 09/08/18 05:30 Potassium 5.1 mmol/L (3.6-5.0) H 09/08/18 05:30 Chloride 101.0 mmol/L (98-107) 09/08/18 05:30 Carbon Dioxide 28 mmol/L (22-30) 09/08/18 05:30 Anion Gap 17 mmol/L 09/08/18 05:30 BUN 12 mg/dL (9-20) 09/08/18 05:30 Creatinine 0.4 mg/dL (0.8-1.5) L 09/08/18 05:30 Estimated GFR > 60 ml/min 09/08/18 05:30 BUN/Creatinine Ratio 30 % 09/08/18 05:30 Glucose 197 mg/dL (75-100) H 09/08/18 05:30 Hemoglobin A1c 6.2 % (4-6) H 09/07/18 19:18 Calcium 8.7 mg/dL (8.4-10.2) 09/08/18 05:30 Total Bilirubin 0.20 mg/dL (0.1-1.2) 09/08/18 05:30 AST 26 units/L (5-40) 09/08/18 05:30 ALT 24 units/L (7-56) 09/08/18 05:30 Alkaline Phosphatase 171 units/L (35-129) H 09/08/18 05:30 Total Creatine Kinase 45 units/L (55-170) L 09/07/18 Unknown CK-MB (CK-2) 2.6 ng/mL (0.0-4.0) 09/07/18 Unknown CK-MB (CK-2) Rel Index 5.7 (0-4) H 09/07/18 Unknown Troponin T 0.056 ng/mL (0.00-0.029) H 09/07/18 Unknown NT-Pro-B Natriuret Pep 651.9 pg/mL (0-900) 09/07/18 Unknown Total Protein 7.6 g/dL (6.3-8.2) 09/08/18 05:30 Albumin 2.7 g/dL (3.9-5) L 09/08/18 05:30 Albumin/Globulin Ratio 0.6 % 09/08/18 05:30 Triglycerides 101 mg/dL (2-149) 09/07/18 Unknown Cholesterol 133 mg/dL (50-199) 09/07/18 Unknown LDL Cholesterol Direct 92 mg/dL (50-130) 09/07/18 Unknown HDL Cholesterol 27 mg/dL (40-59) L 09/07/18 Unknown Cholesterol/HDL Ratio 4.92 % 09/07/18 Unknown
[2018-09-09] MEDS: SODIUM CHLORIDE FLUSH SYRINGE 10 ML IV SCH ×2 (16:54→21:33)
--- NOTE | 2018-09-09 21:57 | Event Note ---
Date: 09/09/18 [id number] pending bx
--- NOTE | 2018-09-09 22:47 | Consultation ---
REFERRING PHYSICIAN: Dr. Pratt. REASON FOR CONSULTATION: Lung lesion. HISTORY OF PRESENT ILLNESS: I saw the patient, a 58-year-old Frisian male in the medical floor. The patient was admitted because of shortness of breath, cough for a few months. He has had his lost weight over the last few months. Most of the information comes from the medical records. No clinical medical transcriptionist was present. As per the notes, no history of hemoptysis at this time. PAST MEDICAL HISTORY: None available. PAST SURGICAL HISTORY: None. FAMILY HISTORY: Noncontributory. SOCIAL HISTORY: Active smoker. REVIEW OF SYSTEMS: As per the notes, no fever, no chest pain, no abdominal pain. ALLERGIES: None. PHYSICAL EXAMINATION: VITAL SIGNS: Temperature 94, pulse 102, respirations 16, BP 120/81. HEENT: Mild pallor, no icterus. NECK: No neck lymph nodes. HEART: S1, S2. LUNGS: Transmitted sounds heard. ABDOMEN: Loss of weight based on loose abdominal wall tissue. EXTREMITIES: No calf tenderness. NEUROLOGIC: Alert, awake. LABORATORY DATA: White cell 9, hemoglobin 10.9, MCV 82, platelets 652, potassium 5.1, creatinine 0.4, bilirubin 0.2. RADIOLOGY: CTA chest was done, this showed a right paratracheal mass 8 x 9 cm, extending into the distal right trachea, other changes suggestive lymphatic spread, narrowing of the SVC with collateral return to the heart. ASSESSMENT: 1. Lung lesion, large mass. 2. Radiology suggest lymphangitic spread. 3. Right upper lobe mets, suspected. 4. History of loss of weight. 5. History of shortness of breath. 6. Pulmonary has been consulted. Biopsy is being planned. We will await biopsy to look into treatment options. History of smoking present. JOB# [id number] NM/NTS
[2018-09-10] MEDS: SOLU-Medrol IV SCH ×3 (05:29→22:11)
--- NOTE | 2018-09-10 07:58 | Hem/Onc Progress Note ---
Assessment and Plan 1. Lung lesion, large mass. 2. Radiology suggest lymphangitic spread. 3. Right upper lobe mets, suspected. 4. History of loss of weight. 5. History of shortness of breath. 6. Pulmonary has been consulted. Biopsy. We will await biopsy to look into treatment options. History of smoking present. - Patient Problems (1) Lung mass Current Visit: Yes Status: Acute Subjective Date of service: 09/10/18 Objective - Constitutional Vitals: Last Vital Signs Temp 97.7 F 09/10/18 06:41 Pulse 86 09/10/18 06:41 Resp 20 09/10/18 06:41 BP 135/88 09/10/18 06:41 Pulse Ox 97 09/10/18 06:41 Pain Intensity (0-10): denies any pain General appearance: no acute distress Performance status: 3-limited selfcare - EENT Eyes: EOM intact ENT: clear oral mucosa Lymph node exam: negative cervical - Neck Neck: normal ROM - Respiratory Respiratory effort: Positive: normal Respiratory: bilateral: diminished - Cardiovascular Heart Sounds: Present: S1 & S2 Extremities: No edema - Gastrointestinal General gastrointestinal: Present: soft, non-tender Rectal Exam: deferred - Genitourinary Male genitourinary: Present: deferred - Integumentary Integumentary: warm - Musculoskeletal Musculoskeletal: strength equal bilaterally - Neurologic Neurologic: moves all extremities Medications & Allergies - Medications Allergies/Adverse Reactions: Allergies No Known Allergies Allergy (Unverified 09/07/18 12:25) Active Medications: Generic Name Dose Route Start Last Admin Trade Name Freq PRN Reason Stop Dose Admin Acetaminophen 650 mg 09/07/18 19:08 Tylenol PO Q4H PRN Pain MILD(1-3)/Fever >100.5/[place] Albuterol 2.5 mg 09/07/18 19:12 Proventil IH Q4HRT PRN Shortness Of Breath Albuterol/Ipratropium 1 ampul 09/07/18 20:00 09/09/18 20:27 Duoneb *Not For Prn Use* IH 1 ampul QIDRT R[place]ETTA Administration Enoxaparin Sodium 40 mg 09/08/18 10:00 09/09/18 09:50 Lovenox SUB-Q 40 mg QDAY@1000 RENETTA Administration Hydromorphone HCl 0.5 mg 09/07/18 19:09 Dilaudid IV Q3H PRN Pain , Severe (7-10) Levofloxacin/Dextrose 750 mg in 150 mls @ 100 mls/hr 09/07/18 20:00 09/09/18 09:49 Levaquin 750mg/150ml IV 100 mls/hr Q24HR [facility] Administration Protocol Methylprednisolone Sodium Succinate 125 mg 09/07/18 22:00 09/10/18 05:29 Solu-Medrol IV 125 mg Q8HR R[place] Administration Ondansetron HCl 4 mg 09/07/18 19:08 Zofran IV Q8H PRN Nausea And Vomiting Oxycodone/Acetaminophen 1 tab 09/07/18 19:09 09/08/18 23:57 Percocet 5/325 PO 1 tab Q6H PRN Administration Pain, Moderate (4-6) Sodium Chloride 10 ml 09/07/18 22:00 09/09/18 21:33 Sodium Chloride Flush Syringe 10 Ml IV 10 ml BID R[place]ETTA Administration Sodium Chloride 10 ml 09/07/18 19:08 Sodium Chloride Flush Syringe 10 Ml IV PRN PRN LINE FLUSH
[2018-09-10] MEDS: DUONEB *Not for PRN Use IH SCH ×4 (08:01→20:41)
[2018-09-10 08:41] LABS: Hematocrit 30.6 % (35.5-45.6); Hemoglobin 9.9 gm/dl (11.8-15.2); Mean Corpuscular HGB Conc 32 % (32-34); Mean Corpuscular Volume 81 fl (84-94); Platelet Count 611 K/mm3 (140-440); Red Blood Count 3.77 M/mm3 (3.65-5.03); Red Cell Distribution Width 14.9 % (13.2-15.2)
[2018-09-10 08:46] LABS: BUN/Creatinine Ratio 24; Blood Urea Nitrogen 12 mg/dL (9-20); Calcium 8.5 mg/dL (8.4-10.2); Hemolysis Index 0
[2018-09-10] MEDS: LEVAQUIN 750MG/150ML 750 MG/150 ML BAG IV SCH (10:16)
--- NOTE | 2018-09-10 10:22 | Progress Note ---
History Interval history: Acute hypoxemic respiratory failure. Continue supplemental oxygen. Right lung mass with mediastinal shift and narrowing of trachea. Likely lung cancer. 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 Continue bronchodilators/nebulizers. Hyponatremia. Resolved. Leukocytosis. Patient currently on steroids. Full code status Hospitalist Physical - Constitutional Vitals: Temp Pulse Resp BP Pulse Ox 97.7 F 88 18 135/88 98 09/10/18 06:41 09/10/18 08:02 09/10/18 08:02 09/10/18 06:41 09/10/18 08:17 General appearance: Present: severe distress, well-nourished Results - Labs CBC & Chem 7: 09/10/18 07:20 09/10/18 07:20 Labs: Laboratory Last Values WBC 18.2 K/mm3 (4.5-11.0) H 09/10/18 07:20 RBC 3.77 M/mm3 (3.65-5.03) 09/10/18 07:20 Hgb 9.9 gm/dl (11.8-15.2) L 09/10/18 07:20 Hct 30.6 % (35.5-45.6) L 09/10/18 07:20 MCV 81 fl (84-94) L 09/10/18 07:20 MCH 26 pg (28-32) L 09/10/18 07:20 MCHC 32 % (32-34) 09/10/18 07:20 RDW 14.9 % (13.2-15.2) 09/10/18 07:20 Plt Count 611 K/mm3 (140-440) H 09/10/18 07:20 Lymph % (Auto) 10.5 % (13.4-35.0) L 09/08/18 05:15 [place] % (Auto) 1.4 % (0.0-7.3) 09/08/18 05:15 Eos % (Auto) 0.0 % (0.0-4.3) 09/08/18 05:15 Baso % (Auto) 0.2 % (0.0-1.8) 09/08/18 05:15 Lymph # 1.0 K/mm3 (1.2-5.4) L 09/08/18 05:15 [place] # 0.1 K/mm3 (0.0-0.8) 09/08/18 05:15 Eos # 0.0 K/mm3 (0.0-0.4) 09/08/18 05:15 Baso # 0.0 K/mm3 (0.0-0.1) 09/08/18 05:15 Seg Neutrophils % 87.9 % (40.0-70.0) H 09/08/18 05:15 Seg Neutrophils # 8.2 K/mm3 (1.8-7.7) H 09/08/18 05:15 PT 16.0 Sec. (12.2-14.9) H 09/07/18 13:25 INR 1.24 (0.87-1.13) H 09/07/18 13:25 APTT 46.8 Sec. (24.2-36.6) H 09/07/18 13:25 Sodium 142 mmol/L (137-145) 09/10/18 07:20 Potassium 3.9 mmol/L (3.6-5.0) D 09/10/18 07:20 Chloride 101.6 mmol/L (98-107) 09/10/18 07:20 Carbon Dioxide 28 mmol/L (22-30) 09/10/18 07:20 Anion Gap 16 mmol/L 09/10/18 07:20 BUN 12 mg/dL (9-20) 09/10/18 07:20 Creatinine 0.5 mg/dL (0.8-1.5) L 09/10/18 07:20 Estimated GFR > 60 ml/min 09/10/18 07:20 BUN/Creatinine Ratio 24 % 09/10/18 07:20 Glucose 135 mg/dL (75-100) H 09/10/18 07:20 Hemoglobin A1c 6.2 % (4-6) H 09/07/18 19:18 Calcium 8.5 mg/dL (8.4-10.2) 09/10/18 07:20 Total Bilirubin 0.20 mg/dL (0.1-1.2) 09/08/18 05:30 AST 26 units/L (5-40) 09/08/18 05:30 ALT 24 units/L (7-56) 09/08/18 05:30 Alkaline Phosphatase 171 units/L (35-129) H 09/08/18 05:30 Total Creatine Kinase 45 units/L (55-170) L 09/07/18 Unknown CK-MB (CK-2) 2.6 ng/mL (0.0-4.0) 09/07/18 Unknown CK-MB (CK-2) Rel Index 5.7 (0-4) H 09/07/18 Unknown Troponin T 0.056 ng/mL (0.00-0.029) H 09/07/18 Unknown NT-Pro-B Natriuret Pep 651.9 pg/mL (0-900) 09/07/18 Unknown Total Protein 7.6 g/dL (6.3-8.2) 09/08/18 05:30 Albumin 2.7 g/dL (3.9-5) L 09/08/18 05:30 Albumin/Globulin Ratio 0.6 % 09/08/18 05:30 Triglycerides 101 mg/dL (2-149) 09/07/18 Unknown Cholesterol 133 mg/dL (50-199) 09/07/18 Unknown LDL Cholesterol Direct 92 mg/dL (50-130) 09/07/18 Unknown HDL Cholesterol 27 mg/dL (40-59) L 09/07/18 Unknown Cholesterol/HDL Ratio 4.92 % 09/07/18 Unknown
[2018-09-10] MEDS: LOVENOX SUB-Q SCH (17:41)
[2018-09-10] MEDS: SODIUM CHLORIDE FLUSH SYRINGE 10 ML IV SCH ×2 (17:42→22:12)
[2018-09-11 05:29] LABS: Hematocrit 31.7 % (35.5-45.6); Hemoglobin 10.2 gm/dl (11.8-15.2); Mean Corpuscular HGB Conc 32 % (32-34); Mean Corpuscular Volume 82 fl (84-94); Platelet Count 588 K/mm3 (140-440); Red Blood Count 3.88 M/mm3 (3.65-5.03)
[2018-09-11 05:44] LABS: BUN/Creatinine Ratio 38; Blood Urea Nitrogen 15 mg/dL (9-20); Calcium 8.3 mg/dL (8.4-10.2); Hemolysis Index 1
[2018-09-11] MEDS: SOLU-Medrol IV SCH ×3 (05:48→21:36)
[2018-09-11 06:11] LABS: Anisocytosis 1+; Basophils % (Manual) 0 % (0.0-1.8); Eosinophils % (Manual) 0 % (0.0-4.3); Hypochromasia 2+; Total Cells Counted 100
[2018-09-11 06:12] LABS: Large Platelets Few; Ovalocytes 1+; Platelet Estimate Appears Increased; Stomatocytes Few
[2018-09-11] MEDS: DUONEB *Not for PRN Use IH SCH ×4 (08:19→20:06)
--- NOTE | 2018-09-11 08:42 | Hem/Onc Progress Note ---
Assessment and Plan 1. Lung lesion, large mass. 2. Radiology suggest lymphangitic spread. 3. Right upper lobe mets, suspected. 4. History of loss of weight. 5. History of shortness of breath. 6. Pulmonary has been consulted. Biopsy. We will await biopsy to look into treatment options. History of smoking present. 09/11 - due lung bx - Patient Problems (1) Lung mass Current Visit: Yes Status: Acute Subjective Date of service: 09/11/18 Principal diagnosis: lung mass Interval history: due bx Objective - Constitutional Vitals: Last Vital Signs Temp 97.5 F L 09/11/18 06:14 Pulse 88 09/11/18 06:14 Resp 18 09/11/18 06:14 BP 138/92 09/11/18 06:14 Pulse Ox 98 09/11/18 06:14 Pain Intensity (0-10): denies any pain General appearance: no acute distress Performance status: 3-limited selfcare - EENT Eyes: EOM intact ENT: clear oral mucosa Lymph node exam: negative cervical, negative supraclavicular - Neck Neck: normal ROM - Respiratory Respiratory effort: Positive: normal Respiratory: bilateral: diminished - Cardiovascular Heart Sounds: Present: S1 & S2 Extremities: No edema - Gastrointestinal General gastrointestinal: Present: soft, non-tender Rectal Exam: deferred - Genitourinary Male genitourinary: Present: deferred - Integumentary Integumentary: warm - Musculoskeletal Musculoskeletal: strength equal bilaterally - Neurologic Neurologic: moves all extremities - Labs Lab Results: Laboratory Results - last 24 hr 09/10/18 09/11/18 09/11/18 07:20 05:01 05:01 WBC 18.2 H RBC 3.88 Hgb 10.2 L Hct 31.7 L MCV 82 L MCH 26 L MCHC 32 RDW 15.0 Plt Count 588 H Add Manual Diff Complete Total Counted 100 Seg Neutrophils % Hydroelectric Production Manager Seg Neuts % (Manual) 96.0 H Band Neutrophils % 0 Lymphocytes % (Manual) 1.0 L Reactive Lymphs % (Man) 0 Monocytes % (Manual) 3.0 Eosinophils % (Manual) 0 Basophils % (Manual) 0 Metamyelocytes % 0 Myelocytes % 0 Promyelocytes % 0 Blast Cells % 0 Nucleated RBC % Not Reportable Seg Neutrophils # Man 17.5 H Band Neutrophils # 0.0 Lymphocytes # (Manual) 0.2 L Abs React Lymphs (Man) 0.0 Monocytes # (Manual) 0.5 Eosinophils # (Manual) 0.0 Basophils # (Manual) 0.0 Metamyelocytes # 0.0 Myelocytes # 0.0 Promyelocytes # 0.0 Blast Cells # 0.0 WBC Morphology Not Reportable Hypersegmented Neuts Not Reportable Hyposegmented Neuts Not Reportable Hypogranular Neuts Not Reportable Smudge Cells Not Reportable Toxic Granulation Not Reportable Toxic Vacuolation Not Reportable Dohle Bodies Not Reportable Pelger-Huet Anomaly Not Reportable Alen Rods Not Reportable Platelet Estimate Appears increased Clumped Platelets Not Reportable Plt Clumps, EDTA Not Reportable Large Platelets Few Giant Platelets Not Reportable Platelet Satelliting Not Reportable Plt Morphology Comment Not Reportable RBC Morphology Not Reportable Dimorphic RBCs Not Reportable Polychromasia Not Reportable Hypochromasia 2+ Poikilocytosis Not Reportable Anisocytosis 1+ Microcytosis Not Reportable Macrocytosis Not Reportable Spherocytes Not Reportable Pappenheimer Bodies Not Reportable Sickle Cells Not Reportable Target Cells Not Reportable Tear Drop Cells Not Reportable Ovalocytes 1+ Stomatocytes Few Helmet Cells Not Reportable [place] Bodies Not Reportable [place] Rings Not Reportable [place] Cells Not Reportable Bite Cells Not Reportable Crenated Cell Not Reportable Elliptocytes Not Reportable Acanthocytes (Spur) Not Reportable Rouleaux Not Reportable Hemoglobin C Crystals Not Reportable Schistocytes Not Reportable Malaria parasites Not Reportable Darrell Bodies Not Reportable Hem Pathologist Commnt No Sodium 142 142 Potassium 3.9 D 3.6 Chloride 101.6 102.1 Carbon Dioxide 28 30 Anion Gap 16 14 BUN 12 15 Creatinine 0.5 L 0.4 L Estimated GFR > 60 > 60 BUN/Creatinine Ratio 24 38 Glucose 135 H 131 H Calcium 8.5 8.3 L Medications & Allergies - Medications Allergies/Adverse Reactions: Allergies No Known Allergies Allergy (Unverified 09/07/18 12:25) Home Medications: Home Medications Medication Instructions Recorded Confirmed Last Taken Type RX: No Known Home Medications [No 09/10/18 09/10/18 Unknown History Reported Home Medications] Active Medications: Generic Name Dose Route Start Last Admin Trade Name Freq PRN Reason Stop Dose Admin Acetaminophen 650 mg 09/07/18 19:08 Tylenol PO Q4H PRN Pain MILD(1-3)/Fever >100.5/[place]FF[place] Albuterol 2.5 mg 09/07/18 19:12 Proventil IH Q4HRT PRN Shortness Of Breath Albuterol/Ipratropium 1 ampul 09/07/18 20:00 09/11/18 08:19 Duoneb *Not For Prn Use* IH 1 ampul QIDRT RENETTA Administration Enoxaparin Sodium 40 mg 09/08/18 10:00 09/10/18 17:41 Lovenox SUB-Q 40 mg QDAY@1000 RENETTA Administration Hydromorphone HCl 0.5 mg 09/07/18 19:09 Dilaudid IV Q3H PRN Pain , Severe (7-10) Levofloxacin/Dextrose 750 mg in 150 mls @ 100 mls/hr 09/07/18 20:00 09/10/18 10:16 Levaquin 750mg/150ml IV 100 mls/hr Q24HR RENETTA Administration Protocol Methylprednisolone Sodium Succinate 125 mg 09/07/18 22:00 09/11/18 05:48 Solu-Medrol IV 125 mg Q8HR RENETTA Administration Ondansetron HCl 4 mg 09/07/18 19:08 Zofran IV Q8H PRN Nausea And Vomiting Oxycodone/Acetaminophen 1 tab 09/07/18 19:09 09/08/18 23:57 Percocet 5/325 PO 1 tab Q6H PRN Administration Pain, Moderate (4-6) Sodium Chloride 10 ml 09/07/18 22:00 09/10/18 22:12 Sodium Chloride Flush Syringe 10 Ml IV 10 ml BID RENETTA Administration Sodium Chloride 10 ml 09/07/18 19:08 09/11/18 05:48 Sodium Chloride Flush Syringe 10 Ml IV 10 ml PRN PRN Administration LINE FLUSH
[2018-09-11] MEDS ORDERED: VERSED IV ONE (09:55)
[2018-09-11] MEDS ORDERED: SUBLIMAZE IV ONE (09:55)
--- NOTE | 2018-09-11 09:57 | Progress Note ---
History Interval history: Acute hypoxemic respiratory failure. Continue supplemental oxygen. Right lung mass with mediastinal shift and narrowing of trachea. Likely lung cancer. 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 Continue bronchodilators/nebulizers. Hyponatremia. Resolved. Leukocytosis. Patient currently on steroids. Full code status Hospitalist Physical - Constitutional Vitals: Temp Pulse Resp BP Pulse Ox 97.5 F L 94 H 16 138/92 98 09/11/18 06:14 09/11/18 08:19 09/11/18 08:19 09/11/18 06:14 09/11/18 08:52 General appearance: Present: severe distress, well-nourished Results - Labs CBC & Chem 7: 09/11/18 05:01 09/11/18 05:01 Labs: Laboratory Last Values WBC 18.2 K/mm3 (4.5-11.0) H 09/11/18 05:01 RBC 3.88 M/mm3 (3.65-5.03) 09/11/18 05:01 Hgb 10.2 gm/dl (11.8-15.2) L 09/11/18 05:01 Hct 31.7 % (35.5-45.6) L 09/11/18 05:01 MCV 82 fl (84-94) L 09/11/18 05:01 MCH 26 pg (28-32) L 09/11/18 05:01 MCHC 32 % (32-34) 09/11/18 05:01 RDW 15.0 % (13.2-15.2) 09/11/18 05:01 Plt Count 588 K/mm3 (140-440) H 09/11/18 05:01 Lymph % (Auto) 10.5 % (13.4-35.0) L 09/08/18 05:15 [place] % (Auto) 1.4 % (0.0-7.3) 09/08/18 05:15 Eos % (Auto) 0.0 % (0.0-4.3) 09/08/18 05:15 Baso % (Auto) 0.2 % (0.0-1.8) 09/08/18 05:15 Lymph # 1.0 K/mm3 (1.2-5.4) L 09/08/18 05:15 [place] # 0.1 K/mm3 (0.0-0.8) 09/08/18 05:15 Eos # 0.0 K/mm3 (0.0-0.4) 09/08/18 05:15 Baso # 0.0 K/mm3 (0.0-0.1) 09/08/18 05:15 Add Manual Diff Complete 09/11/18 05:01 Total Counted 100 09/11/18 05:01 Seg Neutrophils % Steel Fabricating Supervisor 09/11/18 05:01 Seg Neuts % (Manual) 96.0 % (40.0-70.0) H 09/11/18 05:01 Band Neutrophils % 0 % 09/11/18 05:01 Lymphocytes % (Manual) 1.0 % (13.4-35.0) L 09/11/18 05:01 Reactive Lymphs % (Man) 0 % 09/11/18 05:01 Monocytes % (Manual) 3.0 % (0.0-7.3) 09/11/18 05:01 Eosinophils % (Manual) 0 % (0.0-4.3) 09/11/18 05:01 Basophils % (Manual) 0 % (0.0-1.8) 09/11/18 05:01 Metamyelocytes % 0 % 09/11/18 05:01 Myelocytes % 0 % 09/11/18 05:01 Promyelocytes % 0 % 09/11/18 05:01 Blast Cells % 0 % 09/11/18 05:01 Nucleated RBC % Not Reportable 09/11/18 05:01 Seg Neutrophils # 8.2 K/mm3 (1.8-7.7) H 09/08/18 05:15 Seg Neutrophils # Man 17.5 K/mm3 (1.8-7.7) H 09/11/18 05:01 Band Neutrophils # 0.0 K/mm3 09/11/18 05:01 Lymphocytes # (Manual) 0.2 K/mm3 (1.2-5.4) L 09/11/18 05:01 Abs React Lymphs (Man) 0.0 K/mm3 09/11/18 05:01 Monocytes # (Manual) 0.5 K/mm3 (0.0-0.8) 09/11/18 05:01 Eosinophils # (Manual) 0.0 K/mm3 (0.0-0.4) 09/11/18 05:01 Basophils # (Manual) 0.0 K/mm3 (0.0-0.1) 09/11/18 05:01 Metamyelocytes # 0.0 K/mm3 09/11/18 05:01 Myelocytes # 0.0 K/mm3 09/11/18 05:01 Promyelocytes # 0.0 K/mm3 09/11/18 05:01 Blast Cells # 0.0 K/mm3 09/11/18 05:01 WBC Morphology Not Reportable 09/11/18 05:01 Hypersegmented Neuts Not Reportable 09/11/18 05:01 Hyposegmented Neuts Not Reportable 09/11/18 05:01 Hypogranular Neuts Not Reportable 09/11/18 05:01 Smudge Cells Not Reportable 09/11/18 05:01 Toxic Granulation Not Reportable 09/11/18 05:01 Toxic Vacuolation Not Reportable 09/11/18 05:01 Dohle Bodies Not Reportable 09/11/18 05:01 Pelger-Huet Anomaly Not Reportable 09/11/18 05:01 Alen Rods Not Reportable 09/11/18 05:01 Platelet Estimate Appears increased 09/11/18 05:01 Clumped Platelets Not Reportable 09/11/18 05:01 Plt Clumps, EDTA Not Reportable 09/11/18 05:01 Large Platelets Few 09/11/18 05:01 Giant Platelets Not Reportable 09/11/18 05:01 Platelet Satelliting Not Reportable 09/11/18 05:01 Plt Morphology Comment Not Reportable 09/11/18 05:01 RBC Morphology Not Reportable 09/11/18 05:01 Dimorphic RBCs Not Reportable 09/11/18 05:01 Polychromasia Not Reportable 09/11/18 05:01 Hypochromasia 2+ 09/11/18 05:01 Poikilocytosis Not Reportable 09/11/18 05:01 Anisocytosis 1+ 09/11/18 05:01 Microcytosis Not Reportable 09/11/18 05:01 Macrocytosis Not Reportable 09/11/18 05:01 Spherocytes Not Reportable 09/11/18 05:01 Pappenheimer Bodies Not Reportable 09/11/18 05:01 Sickle Cells Not Reportable 09/11/18 05:01 Target Cells Not Reportable 09/11/18 05:01 Tear Drop Cells Not Reportable 09/11/18 05:01 Ovalocytes 1+ 09/11/18 05:01 Stomatocytes Few 09/11/18 05:01 Helmet Cells Not Reportable 09/11/18 05:01 [place] Bodies Not Reportable 09/11/18 05:01 [place] Rings Not Reportable 09/11/18 05:01 [place] Cells Not Reportable 09/11/18 05:01 Bite Cells Not Reportable 09/11/18 05:01 Crenated Cell Not Reportable 09/11/18 05:01 Elliptocytes Not Reportable 09/11/18 05:01 Acanthocytes (Spur) Not Reportable 09/11/18 05:01 Rouleaux Not Reportable 09/11/18 05:01 Hemoglobin C Crystals Not Reportable 09/11/18 05:01 Schistocytes Not Reportable 09/11/18 05:01 Malaria parasites Not Reportable 09/11/18 05:01 Darrell Bodies Not Reportable 09/11/18 05:01 Hem Pathologist Commnt No 09/11/18 05:01 PT 16.0 Sec. (12.2-14.9) H 09/07/18 13:25 INR 1.24 (0.87-1.13) H 09/07/18 13:25 APTT 46.8 Sec. (24.2-36.6) H 09/07/18 13:25 Sodium 142 mmol/L (137-145) 09/11/18 05:01 Potassium 3.6 mmol/L (3.6-5.0) 09/11/18 05:01 Chloride 102.1 mmol/L (98-107) 09/11/18 05:01 Carbon Dioxide 30 mmol/L (22-30) 09/11/18 05:01 Anion Gap 14 mmol/L 09/11/18 05:01 BUN 15 mg/dL (9-20) 09/11/18 05:01 Creatinine 0.4 mg/dL (0.8-1.5) L 09/11/18 05:01 Estimated GFR > 60 ml/min 09/11/18 05:01 BUN/Creatinine Ratio 38 % 09/11/18 05:01 Glucose 131 mg/dL (75-100) H 09/11/18 05:01 Hemoglobin A1c 6.2 % (4-6) H 09/07/18 19:18 Calcium 8.3 mg/dL (8.4-10.2) L 09/11/18 05:01 Total Bilirubin 0.20 mg/dL (0.1-1.2) 09/08/18 05:30 AST 26 units/L (5-40) 09/08/18 05:30 ALT 24 units/L (7-56) 09/08/18 05:30 Alkaline Phosphatase 171 units/L (35-129) H 09/08/18 05:30 Total Creatine Kinase 45 units/L (55-170) L 09/07/18 Unknown CK-MB (CK-2) 2.6 ng/mL (0.0-4.0) 09/07/18 Unknown CK-MB (CK-2) Rel Index 5.7 (0-4) H 09/07/18 Unknown Troponin T 0.056 ng/mL (0.00-0.029) H 09/07/18 Unknown NT-Pro-B Natriuret Pep 651.9 pg/mL (0-900) 09/07/18 Unknown Total Protein 7.6 g/dL (6.3-8.2) 09/08/18 05:30 Albumin 2.7 g/dL (3.9-5) L 09/08/18 05:30 Albumin/Globulin Ratio 0.6 % 09/08/18 05:30 Triglycerides 101 mg/dL (2-149) 09/07/18 Unknown Cholesterol 133 mg/dL (50-199) 09/07/18 Unknown LDL Cholesterol Direct 92 mg/dL (50-130) 09/07/18 Unknown HDL Cholesterol 27 mg/dL (40-59) L 09/07/18 Unknown Cholesterol/HDL Ratio 4.92 % 09/07/18 Unknown
[2018-09-11] MEDS: SODIUM CHLORIDE FLUSH SYRINGE 10 ML IV SCH ×2 (10:00→21:36)
--- NOTE | 2018-09-11 12:10 | Event Note ---
Date: 09/11/18 Off floor for biopsy. Will f/u in AM.
[2018-09-11] MEDS: LEVAQUIN 750MG/150ML 750 MG/150 ML BAG IV SCH (13:01)
--- NOTE | 2018-09-11 13:51 | Cat Scan Report ---
CT BIOPSY LUNG RIGHT History: Right lung mass Description of procedure: Informed consent was obtained. An translator and interpreter was utilized. Sterile technique was utilized. After consultation with anesthesiology, moderate sedation was not advised secondary to the large right upper lobe/mediastinal mass which compresses the trachea. Only local anesthetic was used which was discussed with the patient. Intraobserver time of 15 minutes. Cardiorespiratory monitoring by RN. Using CT guidance, a 19-gauge introducer needle was advanced to the leading edge of an approximate 8 cm mass in the medial right upper lobe which extends into the mediastinum. 3 separate 2.2 cm 20-gauge core biopsies were obtained for pathology. The samples were deemed adequate by the pathologist. Followup scan demonstrated no evidence for pneumothorax. The patient tolerated the procedure well. Impression: Successful CT-guided biopsy of the right chest mass.
--- NOTE | 2018-09-11 14:23 | XRay Report ---
AP CHEST: HISTORY: Right lung mass, recent CT-guided biopsy Recent CT-guided biopsy of a large mass in the medial right upper lobe/mediastinum was performed. Followup chest x-ray demonstrates no evidence for pneumothorax. 8 cm mass along the medial right lung is unchanged. The lungs are clear otherwise. Heart size is normal. IMPRESSION: No evidence for pneumothorax.
[2018-09-11] MEDS: LOVENOX SUB-Q SCH (17:44)
[2018-09-12] MEDS ORDERED: APRESOLINE IV NR (05:44)
[2018-09-12] MEDS: SOLU-Medrol IV SCH (06:12)
--- NOTE | 2018-09-12 08:00 | Hem/Onc Progress Note ---
Assessment and Plan 1. Lung lesion, large mass. 2. Radiology suggest lymphangitic spread. 3. Right upper lobe mets, suspected. 4. History of loss of weight. 5. History of shortness of breath. 6. Pulmonary has been consulted. Biopsy. We will await biopsy to look into treatment options. History of smoking present. 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 - pending path of bx Objective - Constitutional Vitals: Last Vital Signs Temp 98.0 F 09/12/18 05:01 Pulse 98 H 09/12/18 06:12 Resp 20 09/12/18 05:01 BP 157/100 09/12/18 06:12 Pulse Ox 97 09/12/18 05:01 Pain Intensity (0-10): denies any pain General appearance: mild distress (SOB) Performance status: 3-limited selfcare - EENT Eyes: EOM intact ENT: hearing intact Lymph node exam: negative cervical - Neck Neck: normal ROM - Respiratory Respiratory effort: Positive: other (slightly labored) Respiratory: bilateral: diminished, wheezing - Cardiovascular Heart Sounds: Present: S1 & S2 Extremities: No edema - Gastrointestinal General gastrointestinal: Present: soft, non-tender Rectal Exam: deferred - Genitourinary Male genitourinary: Present: deferred - Integumentary Integumentary: warm - Musculoskeletal Musculoskeletal: strength equal bilaterally - Neurologic Neurologic: moves all extremities Medications & Allergies - Medications Allergies/Adverse Reactions: Allergies No Known Allergies Allergy (Unverified 09/07/18 12:25) Home Medications: Home Medications Medication Instructions Recorded Confirmed Last Taken Type No Known Home Medications [No 09/10/18 09/10/18 Unknown History Reported Home Medications] Active Medications: Generic Name Dose Route Start Last Admin Trade Name Freq PRN Reason Stop Dose Admin Acetaminophen 650 mg 09/07/18 19:08 Tylenol PO Q4H PRN Pain MILD(1-3)/Fever >100.5/[place] Albuterol 2.5 mg 09/07/18 19:12 Proventil IH Q4HRT PRN Shortness Of Breath Albuterol/Ipratropium 1 ampul 09/07/18 20:00 09/11/18 20:06 Duoneb *Not For Prn Use* IH 1 ampul QIDRT RENETTA Administration Amlodipine Besylate 5 mg 09/12/18 10:00 Norvasc PO QDAY RENETTA Enoxaparin Sodium 40 mg 09/08/18 10:00 09/11/18 17:44 Lovenox SUB-Q 40 mg QDAY@1000 RENETTA Administration Hydromorphone HCl 0.5 mg 09/07/18 19:09 Dilaudid IV Q3H PRN Pain , Severe (7-10) Levofloxacin/Dextrose 750 mg in 150 mls @ 100 mls/hr 09/07/18 20:00 09/11/18 13:01 Levaquin 750mg/150ml IV 100 mls/hr Q24HR RENETTA Administration Protocol Methylprednisolone Sodium Succinate 125 mg 09/07/18 22:00 09/12/18 06:12 Solu-Medrol IV 125 mg Q8HR RENETTA Administration Ondansetron HCl 4 mg 09/07/18 19:08 Zofran IV Q8H PRN Nausea And Vomiting Oxycodone/Acetaminophen 1 tab 09/07/18 19:09 09/08/18 23:57 Percocet 5/325 PO 1 tab Q6H PRN Administration Pain, Moderate (4-6) Sodium Chloride 10 ml 09/07/18 22:00 09/11/18 21:36 Sodium Chloride Flush Syringe 10 Ml IV 10 ml BID RENETTA Administration Sodium Chloride 10 ml 09/07/18 19:08 09/11/18 05:48 Sodium Chloride Flush Syringe 10 Ml IV 10 ml PRN PRN Administration LINE FLUSH
[2018-09-12] MEDS: LEVAQUIN 750MG/150ML 750 MG/150 ML BAG IV SCH (10:01)
[2018-09-12] MEDS: LOVENOX SUB-Q SCH (10:02)
[2018-09-12] MEDS: NORVASC PO SCH (10:02)
[2018-09-12] MEDS: DUONEB *Not for PRN Use IH SCH ×3 (10:04→20:12)
[2018-09-12] MEDS: SODIUM CHLORIDE FLUSH SYRINGE 10 ML IV SCH ×2 (10:06→22:27)
--- NOTE | 2018-09-12 11:25 | Progress Note ---
Assessment and Plan Assessment and plan: Acute hypoxemic respiratory failure. Continue supplemental oxygen. Right lung mass with mediastinal shift and narrowing of trachea. Likely lung cancer. Right upper lobe metastases suspected. Radiology suggests lymphangitic spread. History of weight loss. Pulm and Oncology following CT lung biopsy completed. Oncology to follow-up pathology as an outpatient. SVC syndrome COPD exacerbation. Continue bronchodilators/nebulizers. Hyponatremia. Resolved. Leukocytosis. Patient currently on steroids. Full code status History Interval history: No new complaints overnight. Hospitalist Physical - Constitutional Vitals: Temp Pulse Resp BP Pulse Ox 98.0 F 100 H 118 H 144/92 98 09/12/18 05:01 09/12/18 10:16 09/12/18 10:16 09/12/18 10:02 09/12/18 10:08 General appearance: Present: no acute distress, well-nourished - EENT Eyes: Present: PERRL, EOM intact ENT: hearing intact, clear oral mucosa, dentition normal - Neck Neck: Present: supple, normal ROM - Respiratory Respiratory effort: normal Respiratory: bilateral: CTA - Cardiovascular Rhythm: regular Heart Sounds: Present: S1 & S2. Absent: gallop, rub - Extremities Extremities: no ischemia, No edema, Full ROM - Abdominal General gastrointestinal: soft, non-tender, non-distended, normal bowel sounds - Integumentary Integumentary: Present: clear, warm, dry - Neurologic Neurologic: CNII-XII intact, moves all extremities Results - Labs CBC & Chem 7: 09/11/18 05:01 09/11/18 05:01 Labs: Laboratory Last Values WBC 18.2 K/mm3 (4.5-11.0) H 09/11/18 05:01 RBC 3.88 M/mm3 (3.65-5.03) 09/11/18 05:01 Hgb 10.2 gm/dl (11.8-15.2) L 09/11/18 05:01 Hct 31.7 % (35.5-45.6) L 09/11/18 05:01 MCV 82 fl (84-94) L 09/11/18 05:01 MCH 26 pg (28-32) L 09/11/18 05:01 MCHC 32 % (32-34) 09/11/18 05:01 RDW 15.0 % (13.2-15.2) 09/11/18 05:01 Plt Count 588 K/mm3 (140-440) H 09/11/18 05:01 Lymph % (Auto) 10.5 % (13.4-35.0) L 09/08/18 05:15 [place] % (Auto) 1.4 % (0.0-7.3) 09/08/18 05:15 Eos % (Auto) 0.0 % (0.0-4.3) 09/08/18 05:15 Baso % (Auto) 0.2 % (0.0-1.8) 09/08/18 05:15 Lymph # 1.0 K/mm3 (1.2-5.4) L 09/08/18 05:15 [place] # 0.1 K/mm3 (0.0-0.8) 09/08/18 05:15 Eos # 0.0 K/mm3 (0.0-0.4) 09/08/18 05:15 Baso # 0.0 K/mm3 (0.0-0.1) 09/08/18 05:15 Add Manual Diff Complete 09/11/18 05:01 Total Counted 100 09/11/18 05:01 Seg 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 % [employer]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 09/11/18 05:01 Seg Neuts % (Manual) 96.0 % (40.0-70.0) H 09/11/18 05:01 Band Neutrophils % 0 % 09/11/18 05:01 Lymphocytes % (Manual) 1.0 % (13.4-35.0) L 09/11/18 05:01 Reactive Lymphs % (Man) 0 % 09/11/18 05:01 Monocytes % (Manual) 3.0 % (0.0-7.3) 09/11/18 05:01 Eosinophils % (Manual) 0 % (0.0-4.3) 09/11/18 05:01 Basophils % (Manual) 0 % (0.0-1.8) 09/11/18 05:01 Metamyelocytes % 0 % 09/11/18 05:01 Myelocytes % 0 % 09/11/18 05:01 Promyelocytes % 0 % 09/11/18 05:01 Blast Cells % 0 % 09/11/18 05:01 Nucleated RBC % Not Reportable 09/11/18 05:01 Seg Neutrophils # 8.2 K/mm3 (1.8-7.7) H 09/08/18 05:15 Seg Neutrophils # Man 17.5 K/mm3 (1.8-7.7) H 09/11/18 05:01 Band Neutrophils # 0.0 K/mm3 09/11/18 05:01 Lymphocytes # (Manual) 0.2 K/mm3 (1.2-5.4) L 09/11/18 05:01 Abs React Lymphs (Man) 0.0 K/mm3 09/11/18 05:01 Monocytes # (Manual) 0.5 K/mm3 (0.0-0.8) 09/11/18 05:01 Eosinophils # (Manual) 0.0 K/mm3 (0.0-0.4) 09/11/18 05:01 Basophils # (Manual) 0.0 K/mm3 (0.0-0.1) 09/11/18 05:01 Metamyelocytes # 0.0 K/mm3 09/11/18 05:01 Myelocytes # 0.0 K/mm3 09/11/18 05:01 Promyelocytes # 0.0 K/mm3 09/11/18 05:01 Blast Cells # 0.0 K/mm3 09/11/18 05:01 WBC Morphology Not Reportable 09/11/18 05:01 Hypersegmented Neuts Not Reportable 09/11/18 05:01 Hyposegmented Neuts Not Reportable 09/11/18 05:01 Hypogranular Neuts Not Reportable 09/11/18 05:01 Smudge Cells Not Reportable 09/11/18 05:01 Toxic Granulation Not Reportable 09/11/18 05:01 Toxic Vacuolation Not Reportable 09/11/18 05:01 Dohle Bodies Not Reportable 09/11/18 05:01 Pelger-Huet Anomaly Not Reportable 09/11/18 05:01 Alen Rods Not Reportable 09/11/18 05:01 Platelet Estimate Appears increased 09/11/18 05:01 Clumped Platelets Not Reportable 09/11/18 05:01 Plt Clumps, EDTA Not Reportable 09/11/18 05:01 Large Platelets Few 09/11/18 05:01 Giant Platelets Not Reportable 09/11/18 05:01 Platelet Satelliting Not Reportable 09/11/18 05:01 Plt Morphology Comment Not Reportable 09/11/18 05:01 RBC Morphology Not Reportable 09/11/18 05:01 Dimorphic RBCs Not Reportable 09/11/18 05:01 Polychromasia Not Reportable 09/11/18 05:01 Hypochromasia 2+ 09/11/18 05:01 Poikilocytosis Not Reportable 09/11/18 05:01 Anisocytosis 1+ 09/11/18 05:01 Microcytosis Not Reportable 09/11/18 05:01 Macrocytosis Not Reportable 09/11/18 05:01 Spherocytes Not Reportable 09/11/18 05:01 Pappenheimer Bodies Not Reportable 09/11/18 05:01 Sickle Cells Not Reportable 09/11/18 05:01 Target Cells Not Reportable 09/11/18 05:01 Tear Drop Cells Not Reportable 09/11/18 05:01 Ovalocytes 1+ 09/11/18 05:01 Stomatocytes Few 09/11/18 05:01 Helmet Cells Not Reportable 09/11/18 05:01 [place] Bodies Not Reportable 09/11/18 05:01 [place] Rings Not Reportable 09/11/18 05:01 [place] Cells Not Reportable 09/11/18 05:01 Bite Cells Not Reportable 09/11/18 05:01 Crenated Cell Not Reportable 09/11/18 05:01 Elliptocytes Not Reportable 09/11/18 05:01 Acanthocytes (Spur) Not Reportable 09/11/18 05:01 Rouleaux Not Reportable 09/11/18 05:01 Hemoglobin C Crystals Not Reportable 09/11/18 05:01 Schistocytes Not Reportable 09/11/18 05:01 Malaria parasites Not Reportable 09/11/18 05:01 Darrell Bodies Not Reportable 09/11/18 05:01 Hem Pathologist Commnt No 09/11/18 05:01 PT 16.0 Sec. (12.2-14.9) H 09/07/18 13:25 INR 1.24 (0.87-1.13) H 09/07/18 13:25 APTT 46.8 Sec. (24.2-36.6) H 09/07/18 13:25 Sodium 142 mmol/L (137-145) 09/11/18 05:01 Potassium 3.6 mmol/L (3.6-5.0) 09/11/18 05:01 Chloride 102.1 mmol/L (98-107) 09/11/18 05:01 Carbon Dioxide 30 mmol/L (22-30) 09/11/18 05:01 Anion Gap 14 mmol/L 09/11/18 05:01 BUN 15 mg/dL (9-20) 09/11/18 05:01 Creatinine 0.4 mg/dL (0.8-1.5) L 09/11/18 05:01 Estimated GFR > 60 ml/min 09/11/18 05:01 BUN/Creatinine Ratio 38 % 09/11/18 05:01 Glucose 131 mg/dL (75-100) H 09/11/18 05:01 Hemoglobin A1c 6.2 % (4-6) H 09/07/18 19:18 Calcium 8.3 mg/dL (8.4-10.2) L 09/11/18 05:01 Total Bilirubin 0.20 mg/dL (0.1-1.2) 09/08/18 05:30 AST 26 units/L (5-40) 09/08/18 05:30 ALT 24 units/L (7-56) 09/08/18 05:30 Alkaline Phosphatase 171 units/L (35-129) H 09/08/18 05:30 Total Creatine Kinase 45 units/L (55-170) L 09/07/18 Unknown CK-MB (CK-2) 2.6 ng/mL (0.0-4.0) 09/07/18 Unknown CK-MB (CK-2) Rel Index 5.7 (0-4) H 09/07/18 Unknown Troponin T 0.056 ng/mL (0.00-0.029) H 09/07/18 Unknown NT-Pro-B Natriuret Pep 651.9 pg/mL (0-900) 09/07/18 Unknown Total Protein 7.6 g/dL (6.3-8.2) 09/08/18 05:30 Albumin 2.7 g/dL (3.9-5) L 09/08/18 05:30 Albumin/Globulin Ratio 0.6 % 09/08/18 05:30 Triglycerides 101 mg/dL (2-149) 09/07/18 Unknown Cholesterol 133 mg/dL (50-199) 09/07/18 Unknown LDL Cholesterol Direct 92 mg/dL (50-130) 09/07/18 Unknown HDL Cholesterol 27 mg/dL (40-59) L 09/07/18 Unknown Cholesterol/HDL Ratio 4.92 % 09/07/18 Unknown
--- NOTE | 2018-09-12 13:04 | Progress Note ---
Assessment and Plan Imp: 1. Lung/mediastinal mass, likely malignant 2. 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 COPD exac. 4. Hemoptysis 2/2 #1 5. Chronic nicotine dependence, cigs 6. Acute respiratory failure, hypoxia Rec: 1. F/u Biopsy results; prelim shows malignancy cells 2. Stop smoking 3. Finish 7 days or so of Levaquin; change Solumedrol to Prednisone 4. Home O2 eval. prior to d/c Plan of care reviewed with patient, he understands/agrees Subjective Date of service: 09/12/18 Principal diagnosis: lung mass Interval history: Awake, alert. Had CT guided biopsy without issues. SOB and hemoptysis better. Active Medications Acetaminophen (Tylenol) 650 mg PO Q4H PRN PRN Reason: Pain MILD(1-3)/Fever >100.5/[place] Albuterol (Proventil) 2.5 mg IH Q4HRT PRN PRN Reason: Shortness Of Breath Albuterol/Ipratropium (Duoneb *Not For Prn Use*) 1 ampul IH TIDRT [facility] Amlodipine Besylate (Norvasc) 5 mg PO QDAY [facility] Last Admin: 09/12/18 10:02 Dose: 5 mg Documented by: Arformoterol Tartrate (Brovana Nebu) 15 mcg IH Q12HRT [facility] Budesonide (Pulmicort) 0.5 mg IH Q12HRT [facility] Enoxaparin Sodium (Lovenox) 40 mg SUB-Q QDAY@1000 RENETTA Last Admin: 09/12/18 10:02 Dose: 40 mg Documented by: Hydromorphone HCl (Dilaudid) 0.5 mg IV Q3H PRN PRN Reason: Pain , Severe (7-10) Levofloxacin/Dextrose (Levaquin 750mg/150ml) 750 mg in 150 mls @ 100 mls/hr IV Q24HR [facility]; Protocol Last Admin: 09/12/18 10:01 Dose: 100 mls/hr Documented by: Ondansetron HCl (Zofran) 4 mg IV Q8H PRN PRN Reason: Nausea And Vomiting Oxycodone/Acetaminophen (Percocet 5/325) 1 tab PO Q6H PRN PRN Reason: Pain, Moderate (4-6) Last Admin: 09/08/18 23:57 Dose: 1 tab Documented by: Prednisone (Deltasone) 40 mg PO QDAY RENETTA Sodium Chloride (Sodium Chloride Flush Syringe 10 Ml) 10 ml IV BID RENETTA Last Admin: 09/12/18 10:06 Dose: 10 ml Documented by: Sodium Chloride (Sodium Chloride Flush Syringe 10 Ml) 10 ml IV PRN PRN PRN Reason: LINE FLUSH Last Admin: 09/11/18 05:48 Dose: 10 ml Documented by: Objective Vital Signs - 12hr 09/12/18 09/12/18 09/12/18 05:01 06:12 10:02 Temperature 98.0 F Pulse Rate 94 H 98 H 94 H Pulse Rate [ Posterior Bilateral Throughout] Respiratory 20 Rate Respiratory Rate [Posterior Bilateral Throughout] Blood Pressure 158/100 157/100 144/92 O2 Sat by Pulse 97 98 Oximetry 09/12/18 09/12/18 09/12/18 10:04 10:08 10:16 Temperature Pulse Rate Pulse Rate [ 101 H 100 H Posterior Bilateral Throughout] Respiratory Rate Respiratory 16 118 H Rate [Posterior Bilateral Throughout] Blood Pressure O2 Sat by Pulse 98 Oximetry 09/12/18 12:43 Temperature 97.9 F Pulse Rate 121 H Pulse Rate [ Posterior Bilateral Throughout] Respiratory 22 Rate Respiratory Rate [Posterior Bilateral Throughout] Blood Pressure 135/82 O2 Sat by Pulse 98 Oximetry Constitutional: no acute distress, alert Eyes: non-icteric ENT: oropharynx moist Neck: supple Effort: normal Ascultation: Bilateral: wheezes (faint expiratory wheezes bilaterally) Cardiovascular: regular rate and rhythm (no mrg) Gastrointestinal: normoactive bowel sounds, soft, non-tender, non-distended Integumentary: normal Extremities: no cyanosis, no edema, pink and warm Neurologic: normal mental status, non-focal exam, pupils equal and round, CN II- XII normal Psychiatric: mood appropriate, affect normal CBC and BMP: 09/11/18 05:01 09/11/18 05:01 ABG, PT/INR, D-dimer: PT/INR, D-dimer PT 16.0 Sec. (12.2-14.9) H 09/07/18 13:25 INR 1.24 (0.87-1.13) H 09/07/18 13:25 Abnormal lab findings: Abnormal Labs 09/07/18 09/07/1819 13:25 19:18 Unknown WBC Hgb Hct MCV MCH Plt Count Lymph % (Auto) Lymph # [place] # Seg Neutrophils % Seg Neuts % (Manual) Lymphocytes % (Manual) Seg Neutrophils # Seg Neutrophils # Man Lymphocytes # (Manual) PT 16.0 H INR 1.24 H APTT 46.8 H Sodium 134 L Potassium Chloride 94.7 L Creatinine 0.4 L Glucose 135 H Hemoglobin A1c 6.2 H Calcium Alkaline Phosphatase Total Creatine Kinase CK-MB (CK-2) Rel Index Troponin T Albumin HDL Cholesterol 09/07/18 09/07/18 09/08/18 Unknown Unknown 05:15 WBC 15.5 H Hgb 10.9 L 10.9 L Hct 33.6 L 34.1 L MCV 82 L 82 L MCH 26 L 26 L Plt Count 618 H 652 H Lymph % (Auto) 8.6 L 10.5 L Lymph # 1.0 L [place] # 0.9 H Seg Neutrophils % 85.3 H 87.9 H Seg Neuts % (Manual) Lymphocytes % (Manual) Seg Neutrophils # 13.2 H 8.2 H Seg Neutrophils # Man Lymphocytes # (Manual) PT INR APTT Sodium Potassium Chloride Creatinine Glucose Hemoglobin A1c Calcium Alkaline Phosphatase Total Creatine Kinase 45 L CK-MB (CK-2) Rel Index 5.7 H Troponin T 0.056 H Albumin HDL Cholesterol 27 L 09/08/18 09/10/18 09/10/18 05:30 07:20 07:20 WBC 18.2 H Hgb 9.9 L Hct 30.6 L MCV 81 L MCH 26 L Plt Count 611 H Lymph % (Auto) Lymph # [place] # Seg Neutrophils % Seg Neuts % (Manual) Lymphocytes % (Manual) Seg Neutrophils # Seg Neutrophils # Man Lymphocytes # (Manual) PT INR APTT Sodium Potassium 5.1 H Chloride Creatinine 0.4 L 0.5 L Glucose 197 H 135 H Hemoglobin A1c Calcium Alkaline Phosphatase 171 H Total Creatine Kinase CK-MB (CK-2) Rel Index Troponin T Albumin 2.7 L HDL Cholesterol 09/11/18 09/11/18 05:01 05:01 WBC 18.2 H Hgb 10.2 L Hct 31.7 L MCV 82 L MCH 26 L Plt Count 588 H Lymph % (Auto) Lymph # [place] # Seg Neutrophils % Seg Neuts % (Manual) 96.0 H Lymphocytes % (Manual) 1.0 L Seg Neutrophils # Seg Neutrophils # Man 17.5 H Lymphocytes # (Manual) 0.2 L PT INR APTT Sodium Potassium Chloride Creatinine 0.4 L Glucose 131 H Hemoglobin A1c Calcium 8.3 L Alkaline Phosphatase Total Creatine Kinase CK-MB (CK-2) Rel Index Troponin T Albumin HDL Cholesterol Chest x-ray: report reviewed, image reviewed CT scan - chest: report reviewed, image reviewed
[2018-09-12] MEDS ORDERED: NORMODYNE IV PRN (17:25)
[2018-09-12] MEDS: BROVANA NEBU IH SCH (20:12)
[2018-09-12] MEDS: PULMICORT IH SCH (20:12)
[2018-09-13] MEDS ORDERED: ATIVAN IV NR (04:35)
--- NOTE | 2018-09-13 07:49 | Hem/Onc Progress Note ---
Assessment and Plan 1. Lung lesion, large mass. 2. Radiology suggest lymphangitic spread. 3. Right upper lobe mets, suspected. 4. History of loss of weight. 5. History of shortness of breath. 6. Pulmonary has been consulted. Biopsy. We will await biopsy to look into treatment options. History of smoking present. 09/11 - due lung bx 09/12 - pending path - OP follow up an option 09/13 XRT eval for palliation - I d/w dr Harding OP follow up - Patient Problems (1) Lung mass Status: Acute Subjective Date of service: 09/13/18 Principal diagnosis: lung cancer Interval history: slighlty SOB Objective - Constitutional Vitals: Last Vital Signs Temp 99.8 F H 09/13/18 05:51 Pulse 93 H 09/13/18 05:51 Resp 20 09/13/18 05:51 BP 125/81 09/13/18 05:51 Pulse Ox 96 09/13/18 05:51 Pain Intensity (0-10): denies any pain General appearance: mild distress (cough - SOB) Performance status: 2- selfcare, ambulatory - EENT Eyes: EOM intact ENT: clear oral mucosa Lymph node exam: negative cervical, negative supraclavicular - Neck Neck: normal ROM - Respiratory Respiratory effort: Positive: other (transmitted sounds) Respiratory: bilateral: diminished - Cardiovascular Heart Sounds: Present: S1 & S2 Extremities: No edema - Gastrointestinal General gastrointestinal: Present: soft, non-tender Rectal Exam: deferred - Genitourinary Male genitourinary: Present: deferred - Integumentary Integumentary: warm - Musculoskeletal Musculoskeletal: strength equal bilaterally - Neurologic Neurologic: moves all extremities Medications & Allergies - Medications Allergies/Adverse Reactions: Allergies No Known Allergies Allergy (Unverified 09/07/18 12:25) Home Medications: Home Medications Medication Instructions Recorded Confirmed Last Taken Type RX: Arformoterol Nebu [Brovana 15 mcg IH Q12HRT 30 Days ml 09/13/18 Unknown Rx Nebu] RX: Budesonide [Pulmicort Respules] 0.5 mg IH Q12HRT 30 Days nebu 09/13/18 Unknown Rx RX: Ipratropium/Albuterol Sulfate 1 ampul IH TIDRT 30 Days ampul.neb 09/13/18 Unknown Rx [DUONEB *Not for PRN Use*] RX: Labetalol [Normodyne TAB] 200 mg PO BID #60 tablet 09/13/18 Unknown Rx RX: amLODIPine [Norvasc] 10 mg PO QDAY #30 tablet 09/13/18 Unknown Rx RX: oxyCODONE /ACETAMINOPHEN 1 tab PO Q6H PRN #12 tablet 09/13/18 Unknown Rx [Percocet 5/325 mg] methylPREDNISolone [Medrol] 4 mg PO QAM #1 tab.ds.pk 09/13/18 Unknown Rx Active Medications: Generic Name Dose Route Start Last Admin Trade Name Freq PRN Reason Stop Dose Admin Acetaminophen 650 mg 09/07/18 19:08 Tylenol PO Q4H PRN Pain MILD(1-3)/Fever >100.5/[place] Albuterol 2.5 mg 09/07/18 19:12 09/13/18 02:29 Proventil IH 2.5 mg Q4HRT PRN Administration Shortness Of Breath Albuterol/Ipratropium 1 ampul 09/12/18 14:00 09/12/18 20:12 Duoneb *Not For Prn Use* IH 1 ampul TIDRT RENETTA Administration Amlodipine Besylate 5 mg 09/12/18 10:00 09/12/18 10:02 Norvasc PO 5 mg QDAY RENETTA Administration Arformoterol Tartrate 15 mcg 09/12/18 20:00 09/12/18 20:12 Brovana Nebu IH Not Given Q12HRT [facility]ETTA Budesonide 0.5 mg 09/12/18 20:00 09/12/18 20:12 Pulmicort IH 0.5 mg Q12HRT RENETTA Administration Enoxaparin Sodium 40 mg 09/08/18 10:00 09/12/18 10:02 Lovenox SUB-Q 40 mg QDAY@1000 RENETTA Administration Hydromorphone HCl 0.5 mg 09/07/18 19:09 Dilaudid IV Q3H PRN Pain , Severe (7-10) Levofloxacin/Dextrose 750 mg in 150 mls @ 100 mls/hr 09/07/18 20:00 09/12/18 10:01 Levaquin 750mg/150ml IV 100 mls/hr Q24HR RENETTA Administration Protocol Labetalol HCl 10 mg 09/12/18 17:25 09/13/18 03:25 Normodyne IV 10 mg Q6HR PRN Administration HTN SYS>170 CARLY>95 Ondansetron HCl 4 mg 09/07/18 19:08 Zofran IV Q8H PRN Nausea And Vomiting Oxycodone/Acetaminophen 1 tab 09/07/18 19:09 09/08/18 23:57 Percocet 5/325 PO 1 tab Q6H PRN Administration Pain, Moderate (4-6) Prednisone 40 mg 09/13/18 10:00 Deltasone PO QDAY RENETTA Sodium Chloride 10 ml 09/07/18 22:00 09/12/18 22:27 Sodium Chloride Flush Syringe 10 Ml IV 10 ml BID RENETTA Administration Sodium Chloride 10 ml 09/07/18 19:08 09/11/18 05:48 Sodium Chloride Flush Syringe 10 Ml IV 10 ml PRN PRN Administration LINE FLUSH
[2018-09-13] MEDS: BROVANA NEBU IH SCH (08:47)
[2018-09-13] MEDS: PULMICORT IH SCH (08:47)
[2018-09-13] MEDS: DUONEB *Not for PRN Use IH SCH ×2 (08:49→13:38)
--- NOTE | 2018-09-13 08:50 | Discharge Summary ---
Providers - Providers Date of Admission: 09/07/18 19:08 Date of discharge: 09/13/18 Attending physician: VIJAY LATHAM 09/07/18 17:04 Consult to Physician [CONS] Urgent Comment: Consulting Provider: OMERO ZHU Physician Instructions: Reason For Exam: lung mass, airway narrowing 09/07/18 19:09 Consult to Physician [CONS] Routine Comment: Consulting Provider: EDMUND AVILA Physician Instructions: Reason For Exam: cancer of lung 09/13/18 07:51 Consult to Physician [CONS] Urgent Comment: Consulting Provider: JACKIE JULES Physician Instructions: Reason For Exam: SOB - lung mass Primary care physician: [employer] MANAGER Hospitalization Reason for admission: sob Condition: Fair Procedures: CT guided lung bx Hospital course: 58-year-old [place] male with no sig PMH presented with chief complaint of shortness of breath. The patient complained of cough productive of white sputum for the past 2 months. Patient stated for the past 2 days he has had shortness of breath and Wheezing. Patient also complained of upper back pain for the past 2 months. Has been loosing weight for last 2 months as well. Also, patient reportedly had some hemoptysis. CT of the chest revealed right paratracheal mass with invasion of the distal trachea significant for airway narrowing. Patient also had anteroseptal thickening around the mass and in both lower lobes suggestive of lymphangitic spread. Patient also had separate nearby spiculated nodule in the right upper lobe suggestive of metastatic disease. Pathological adenopathy was seen in the mediastinum and right hilar region with significant narrowing of the SVC with collateralized return to the heart. As noted, the findings revealed tracheal compression with possible early SVC syndrome. Patient was noted to have acute hypoxic respiratory failure secondary to the tracheal compression and COPD exacerbation. The patient was treated with IV Solu-Medrol and IV antibiotics. Given the findings, patient underwent CT-guided biopsy instead of bronchoscopy for further evaluation. Preliminary results revealed malignant cells. Pulmonary and heme/onc saw the patient in consultation. She will discharge home with Levaquin and prednisone. Patient should have further follow-up of biopsy results as an outpatient. Case management follow-up for possible O2 with discharge. Oncology also recommended for patient to have radiation therapy. Patient will be sent to radiation oncologists after discharge this morning for his first treatment and we'll have further discussion with future treatment plans in that office. Dedicated discharge 35 minutes. Disposition: DC-01 TO HOME OR SELFCARE Time spent for discharge: 35 - Discharge Diagnoses (1) Tracheal compression Status: Acute (2) Acute respiratory failure Status: Acute Qualifiers: Respiratory failure complication: hypoxia Qualified Code(s): J96.01 - Acute respiratory failure with hypoxia (3) COPD exacerbation Status: Acute (4) Lung cancer Status: Acute Qualifiers: Laterality: right (5) Lung mass Status: Acute (6) Shortness of breath Status: Acute Core Measure Documentation - Palliative Care Palliative Care/ Comfort Measures: Not Applicable - Core Measures Any of the following diagnoses?: none Exam - Constitutional Vitals: Temp Pulse Resp BP Pulse Ox 99.8 F H 93 H 20 125/81 96 09/13/18 05:51 09/13/18 05:51 09/13/18 05:51 09/13/18 05:51 09/13/18 05:51 General appearance: Present: no acute distress, well-nourished - EENT Eyes: Present: PERRL ENT: hearing intact, clear oral mucosa - Neck Neck: Present: supple, normal ROM - Respiratory Respiratory effort: normal Respiratory: bilateral: CTA - Cardiovascular Heart Sounds: Present: S1 & S2. Absent: rub, click - Extremities Extremities: pulses symmetrical, No edema Peripheral Pulses: within normal limits - Abdominal General gastrointestinal: Present: soft, non-tender, non-distended, normal bowel sounds Male genitourinary: Present: normal - Integumentary Integumentary: Present: clear, warm, dry - Musculoskeletal Musculoskeletal: gait normal, strength equal bilaterally - Psychiatric Psychiatric: appropriate mood/affect, intact judgment & insight - Neurologic Neurologic: CNII-XII intact, moves all extremities Plan Activity: no restrictions, advance as tolerated Weight Bearing Status: Weight Bear as Tolerated Diet: regular Additional Instructions: F/U with Pulm and oncology for path results Follow up with: PRIMARY CAREMD [Primary Care Provider] - 3-5 Days NIKITA LORA MD [Staff Physician] - 7 Days EDMUND AVILA MD [Staff Physician] - 7 Days Prescriptions: amLODIPine [Norvasc] 10 mg PO QDAY #30 tablet Arformoterol Nebu [Brovana Nebu] 15 mcg IH Q12HRT 30 Days ml Budesonide [Pulmicort Respules] 0.5 mg IH Q12HRT 30 Days nebu Ipratropium/Albuterol Sulfate [DUONEB *Not for PRN Use*] 1 ampul IH TIDRT 30 Days ampul.neb Labetalol [Normodyne TAB] 200 mg PO BID #60 tablet methylPREDNISolone [Medrol] 4 mg PO QAM #1 tab.ds.pk oxyCODONE /ACETAMINOPHEN [Percocet 5/325 mg] 1 tab PO Q6H PRN #12 tablet PRN Reason: Pain, Moderate (4-6)
[2018-09-13] MEDS ORDERED: DELTASONE PO SCH (10:00)
--- NOTE | 2018-09-13 11:34 | Consultation ---
REFERRING PHYSICIAN: Shawn Bravo MD CHIEF COMPLAINT: " PROFILE: This is a 58-year-old Irish gentleman diagnosed with poorly differentiated carcinoma of the right upper lung referred for radiation therapy. CONCLUSION: 1. 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 2. He has a history of tobacco use. 3. History of dyspnea, weight loss. RECOMMENDATION: We agree with recommendation to deliver involved field palliation radiation to the right upper lung mass. We will plan to deliver a dose of 50 Gy using megavoltage radiation. He will be considered for systemic treatment under direction of Dr. Bravo. ASSESSMENT: This is a very pleasant 58-year-old Irish gentleman who was admitted to [facility] because of increasing shortness of breath and progressive cough and weight loss. He denies any hemoptysis. He underwent a CT scan of the chest and this revealed a right upper lobe paratracheal mass with surrounding stranding suggesting lymphangitic spread. The mass measured 9 x 8 x 7 cm. There was apparent invasion into the distal right trachea and narrowing the airway down the 4 mm. There is encasement and mass effect of the left upper lobe arterial arteries, but no direct invasion. There is encasement and narrowing of the right bronchi identified. There are prominent right hilar soft tissue nodes and right mediastinal soft tissue suggesting adenopathy. The left hilar region is unremarkable. There is anteroseptal thickening with slight nodularity in both lung bases, which may represent lymphangitic spread. There is trace bilateral pleural effusions. There is a spiculated pulmonary nodule in the right upper lobe measuring 5 mm suggesting metastatic disease. The SVC is severely narrowed measuring 4 mm. Collateralized flow to the heart is noted. No obvious metastatic disease to the upper abdomen. He underwent a CT-guided biopsy of the right lung mass and pathology did confirm malignant cells. Final pathology is pending. He is now referred for consideration of radiation treatment. Clinically, the patient is doing reasonably well. He does have marked dyspnea and cough, but denies hemoptysis. Denies any dysphagia. He tells no weight loss. PAST MEDICAL HISTORY: 1. Probable stage 4 carcinoma of the right upper lung diagnosed in 08/2018, radiographic superior vena cava obstruction. 2. History of COPD exacerbation. 3. History of chronic tobacco use. SOCIAL HISTORY: History of [id number] history. FAMILY HISTORY: Noncontributory. MEDICATIONS: Albuterol, Norvasc, Lovenox, Dilaudid, Percocet. ALLERGIES: None known. REVIEW OF SYSTEMS: CONSTITUTIONAL: He notes weight loss. Denies any fever, chills. Notes fatigue. EYES: Denies blurry vision or double vision. ENT: Denies any otalgia, hoarseness, dysphagia. GASTROINTESTINAL: Denies any nausea, vomiting, diarrhea, hematemesis, rectal bleeding. RESPIRATORY: He does have progressive dyspnea, intermittent hemoptysis. CARDIOVASCULAR: Denies any chest pain, orthopnea, or angina. MUSCULOSKELETAL: Denies joint pain. NEUROLOGIC: Denies any anxiety or depression. PHYSICAL EXAMINATION: GENERAL: He is a chronically ill-appearing gentleman, lying in bed with nasal cannula oxygen in place. VITAL SIGNS: Blood pressure 158/95, pulse is 90, respirations 20, O2 saturation is 97%. ECOG equals 1. Pain equals 0 out of 10. HEENT: Normocephalic, atraumatic. Eyes were clear. Extraocular muscles intact. NECK: Thin. No adenopathy. LUNGS: Show decreased breath sounds in the right upper lung field. Left lung shows rhonchi. Chest: Minimally dilated veins. ABDOMEN: Flat. No palpable masses. EXTREMITIES: No clubbing, cyanosis, or edema. NEUROLOGIC: His motor, sensory, and cerebellar exam intact. Cranial nerves 2-12 are grossly intact. DISCUSSION: This is an unfortunate 58-year-old Irish gentleman. He presents with a large pathologically proven malignancy involving the right upper lung measuring 9 x 8 x 7 cm. There is invasion of the distal right trachea radiographically and severe narrowing of the superior vena cava down to 4 mm. We agree with the recommendation to begin palliative radiotherapy to the right upper lung mass and mediastinum. We will plan to deliver dose of 50 Gy using megavoltage radiation. Risk of radiation including fatigue, cough, fever, esophagitis, pneumonitis, bone marrow suppression was discussed with the patient. In addition, he will be considered for systemic treatment under the direction of Dr. Bravo. We will begin a therapy shortly. JOB# [id number] [facility]
[2018-09-13] MEDS: NORVASC PO SCH (11:35)
[2018-09-13] MEDS: LEVAQUIN 750MG/150ML 750 MG/150 ML BAG IV SCH (11:36)
[2018-09-13] MEDS: SODIUM CHLORIDE FLUSH SYRINGE 10 ML IV SCH (11:36)
[2018-09-13] MEDS: LOVENOX SUB-Q SCH (11:36)
[2018-09-13 11:37] VITALS: BP 133/90
--- NOTE | 2018-09-13 12:44 | Progress Note ---
Assessment and Plan Imp: 1. Lung/mediastinal mass, likely malignant 2. 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 COPD exac. 4. Hemoptysis 2/2 #1 5. Chronic nicotine dependence, cigs 6. Acute respiratory failure, hypoxia Rec: 1. F/u Biopsy results; prelim shows malignancy cells 2. Stop smoking 3. Finish 7 days or so of Levaquin; PO steroid taper at d/c 4. Home O2 eval. prior to d/c Plan of care reviewed with patient, he understands/agrees Subjective Date of service: 09/13/18 Principal diagnosis: lung mass Interval history: SOB and hemoptysis better. Sleeping comfortably. Active Medications Acetaminophen (Tylenol) 650 mg PO Q4H PRN PRN Reason: Pain MILD(1-3)/Fever >100.5/[place] Albuterol (Proventil) 2.5 mg IH Q4HRT PRN PRN Reason: Shortness Of Breath Last Admin: 09/13/18 02:29 Dose: 2.5 mg Documented by: Albuterol/Ipratropium (Duoneb *Not For Prn Use*) 1 ampul IH TIDRT [facility] Last Admin: 09/13/18 08:49 Dose: Not Given Documented by: Amlodipine Besylate (Norvasc) 5 mg PO QDAY [facility] Last Admin: 09/13/18 11:35 Dose: 5 mg Documented by: Arformoterol Tartrate (Brovana Nebu) 15 mcg IH Q12HRT [facility] Last Admin: 09/13/18 08:47 Dose: 15 mcg Documented by: Budesonide (Pulmicort) 0.5 mg IH Q12HRT [facility] Last Admin: 09/13/18 08:47 Dose: 0.5 mg Documented by: Enoxaparin Sodium (Lovenox) 40 mg SUB-Q QDAY@1000 [facility] Last Admin: 09/13/18 11:36 Dose: 40 mg Documented by: Hydromorphone HCl (Dilaudid) 0.5 mg IV Q3H PRN PRN Reason: Pain , Severe (7-10) Levofloxacin/Dextrose (Levaquin 750mg/150ml) 750 mg in 150 mls @ 100 mls/hr IV Q24HR [facility]; Protocol Last Admin: 09/13/18 11:36 Dose: 100 mls/hr Documented by: Labetalol HCl (Normodyne) 10 mg IV Q6HR PRN PRN Reason: HTN SYS>170 CARLY>95 Last Admin: 09/13/18 03:25 Dose: 10 mg Documented by: Ondansetron HCl (Zofran) 4 mg IV Q8H PRN PRN Reason: Nausea And Vomiting Oxycodone/Acetaminophen (Percocet 5/325) 1 tab PO Q6H PRN PRN Reason: Pain, Moderate (4-6) Last Admin: 09/08/18 23:57 Dose: 1 tab Documented by: Prednisone (Deltasone) 40 mg PO QDAY [facility] Last Admin: 09/13/18 11:34 Dose: 40 mg Documented by: Sodium Chloride (Sodium Chloride Flush Syringe 10 Ml) 10 ml IV BID [facility] Last Admin: 09/13/18 11:36 Dose: 10 ml Documented by: Sodium Chloride (Sodium Chloride Flush Syringe 10 Ml) 10 ml IV PRN PRN PRN Reason: LINE FLUSH Last Admin: 09/11/18 05:48 Dose: 10 ml Documented by: Objective Vital Signs - 12hr 09/13/18 09/13/18 09/13/18 02:30 02:40 03:25 Temperature Pulse Rate 132 H Pulse Rate [ Anterior Bilateral Throughout] Pulse Rate [ 111 H 116 H Posterior Bilateral Throughout] Respiratory Rate Respiratory Rate [Anterior Bilateral Throughout] Respiratory 20 20 Rate [Posterior Bilateral Throughout] Blood Pressure 194/116 O2 Sat by Pulse Oximetry 09/13/18 09/13/18 09/13/18 03:57 05:51 08:47 Temperature 99.8 F H Pulse Rate 105 H 93 H Pulse Rate [ 127 H Anterior Bilateral Throughout] Pulse Rate [ Posterior Bilateral Throughout] Respiratory 21 20 Rate Respiratory 24 Rate [Anterior Bilateral Throughout] Respiratory Rate [Posterior Bilateral Throughout] Blood Pressure 125/81 O2 Sat by Pulse 98 96 98 Oximetry 09/13/18 09/13/18 11:22 11:35 Temperature 100.0 F H Pulse Rate 129 H Pulse Rate [ Anterior Bilateral Throughout] Pulse Rate [ Posterior Bilateral Throughout] Respiratory 22 Rate Respiratory Rate [Anterior Bilateral Throughout] Respiratory Rate [Posterior Bilateral Throughout] Blood Pressure 130/88 133/90 O2 Sat by Pulse 94 Oximetry Constitutional: no acute distress, asleep Eyes: non-icteric ENT: oropharynx moist Neck: supple Effort: normal Ascultation: Bilateral: wheezes (faint expiratory wheezes bilaterally) Cardiovascular: regular rate and rhythm (no mrg) Gastrointestinal: normoactive bowel sounds, soft, non-tender, non-distended Integumentary: normal Extremities: no cyanosis, no edema, pink and warm Neurologic: normal mental status, non-focal exam, pupils equal and round, CN II- XII normal Psychiatric: mood appropriate, affect normal CBC and BMP: 09/11/18 05:01 09/11/18 05:01 ABG, PT/INR, D-dimer: PT/INR, D-dimer PT 16.0 Sec. (12.2-14.9) H 09/07/18 13:25 INR 1.24 (0.87-1.13) H 09/07/18 13:25 Abnormal lab findings: Abnormal Labs 09/07/18 09/07/18 09/07/18 13:25 19:18 Unknown WBC Hgb Hct MCV MCH Plt Count Lymph % (Auto) Lymph # [place] # Seg Neutrophils % Seg Neuts % (Manual) Lymphocytes % (Manual) Seg Neutrophils # Seg Neutrophils # Man Lymphocytes # (Manual) PT 16.0 H INR 1.24 H APTT 46.8 H Sodium 134 L Potassium Chloride 94.7 L Creatinine 0.4 L Glucose 135 H Hemoglobin A1c 6.2 H Calcium Alkaline Phosphatase Total Creatine Kinase CK-MB (CK-2) Rel Index Troponin T Albumin HDL Cholesterol 09/07/18 09/07/18 09/08/18 Unknown Unknown 05:15 WBC 15.5 H Hgb 10.9 L 10.9 L Hct 33.6 L 34.1 L MCV 82 L 82 L MCH 26 L 26 L Plt Count 618 H 652 H Lymph % (Auto) 8.6 L 10.5 L Lymph # 1.0 L [place] # 0.9 H Seg Neutrophils % 85.3 H 87.9 H Seg Neuts % (Manual) Lymphocytes % (Manual) Seg Neutrophils # 13.2 H 8.2 H Seg Neutrophils # Man Lymphocytes # (Manual) PT INR APTT Sodium Potassium Chloride Creatinine Glucose Hemoglobin A1c Calcium Alkaline Phosphatase Total Creatine Kinase 45 L CK-MB (CK-2) Rel Index 5.7 H Troponin T 0.056 H Albumin HDL Cholesterol 27 L 09/08/18 09/10/18 09/10/18 05:30 07:20 07:20 WBC 18.2 H Hgb 9.9 L Hct 30.6 L MCV 81 L MCH 26 L Plt Count 611 H Lymph % (Auto) Lymph # [place] # Seg Neutrophils % Seg Neuts % (Manual) Lymphocytes % (Manual) Seg Neutrophils # Seg Neutrophils # Man Lymphocytes # (Manual) PT INR APTT Sodium Potassium 5.1 H Chloride Creatinine 0.4 L 0.5 L Glucose 197 H 135 H Hemoglobin A1c Calcium Alkaline Phosphatase 171 H Total Creatine Kinase CK-MB (CK-2) Rel Index Troponin T Albumin 2.7 L HDL Cholesterol 09/11/18 09/11/18 05:01 05:01 WBC 18.2 H Hgb 10.2 L Hct 31.7 L MCV 82 L MCH 26 L Plt Count 588 H Lymph % (Auto) Lymph # [place] # Seg Neutrophils % Seg Neuts % (Manual) 96.0 H Lymphocytes % (Manual) 1.0 L Seg Neutrophils # Seg Neutrophils # Man 17.5 H Lymphocytes # (Manual) 0.2 L PT INR APTT Sodium Potassium Chloride Creatinine 0.4 L Glucose 131 H Hemoglobin A1c Calcium 8.3 L Alkaline Phosphatase Total Creatine Kinase CK-MB (CK-2) Rel Index Troponin T Albumin HDL Cholesterol Chest x-ray: report reviewed, image reviewed
== END 2018-09-13 18:24 | disposition hospice, inpatient (51) | DRG 180 ==
LOC: ED 12:14 → 3A 19:08
PROVIDERS: ADMIT Internal Medicine; ATTEND Hospitalist
PROC: 5A09357 Assistance with Respiratory Ventilation, Less than 24 Consecutive Hours, Continuous Positive Airway Pressure (ICD-10-PCS; 2018-09-07)
PROC: 5A09357 Assistance with Respiratory Ventilation, Less than 24 Consecutive Hours, Continuous Positive Airway Pressure (ICD-10-PCS; 2018-09-07)
PROC: 0BBC3ZX Excision of Right Upper Lung Lobe, Percutaneous Approach, Diagnostic (ICD-10-PCS; principal; 2018-09-11)
DX: C34.11 Malignant neoplasm of upper lobe, right bronchus or lung (principal); J96.01 Acute respiratory failure with hypoxia; J44.1 Chronic obstructive pulmonary disease with (acute) exacerbation; I87.1 Compression of vein; E87.1 Hypo-osmolality and hyponatremia; R59.9 Enlarged lymph nodes, unspecified; J39.8 Other specified diseases of upper respiratory tract; D72.829 Elevated white blood cell count, unspecified; F17.210 Nicotine dependence, cigarettes, uncomplicated; Z71.6 Tobacco abuse counseling
CPT/HCPCS: 36415; 71045; 71046; 71275; 77012; 80048; 80053; 80061; 82550; 82553; 83036; 83880; 84484; 85007; 85025; 85027; 85610; 85730; 88173; 88305; 88333; 88341; 88342; 90686; 93005; 93010; 94640; 94660; 94667; 94760; 99406; G0378; J0360; J1100; J1650; J1956; J2060; J2250; J2930; J3010; J7030; J7042; J7512; Q9967